=== PATIENT | female | born 1965 | race American Indian/Alaskan Native ===

== ENCOUNTER 2017-05-20 18:36 | Inpatient (IN) | payer OTHER ==
[2017-05-20] MEDS ORDERED: NITROSTAT SL ONE (20:12)
[2017-05-20] MEDS ORDERED: ASPIRIN ONE (22:18)
[2017-05-21 00:10] LABS: Basophils % (Auto) 1.6 % (0.0-1.8); Eosinophils % (Auto) 1.9 % (0.0-4.3); Hematocrit 38.3 % (30.3-42.9); Hemoglobin 12.5 gm/dl (10.1-14.3); Mean Corpuscular HGB Conc 33 % (30-34); Mean Corpuscular Hemoglobin 29 pg (28-32); Mean Corpuscular Volume 88 fl (79-97); Platelet Count 357 K/mm3 (140-440); Red Blood Count 4.36 M/mm3 (3.65-5.03); Red Cell Distribution Width 14.2 % (13.2-15.2); White Blood Count 5.9 K/mm3 (4.5-11.0)
[2017-05-21] MEDS ORDERED: SUBLIMAZE IV ONE (00:49)
[2017-05-21 00:52] LABS: Anion Gap 22 mmol/L; Blood Urea Nitrogen 11 mg/dL (7-17); Calcium 9.1 mg/dL (8.4-10.2); Carbon Dioxide 21 mmol/L (22-30); Chloride 97.9 mmol/L (98-107); Glucose 101 mg/dL (65-100); Potassium 3.6 mmol/L (3.6-5.0); Sodium 137 mmol/L (137-145)
--- NOTE | 2017-05-21 01:40 | Emergency Department Report ---
ED Chest Pain HPI - General Chief Complaint: Chest Pain Time Seen by Provider: 05/21/17 00:46 Source: patient, EMS Mode of arrival: Stretcher Limitations: No Limitations - History of Present Illness Initial Comments: Patient is a 52-year-old female who presents with chest pain. Patient states that earlier this morning she was having sharp chest pain about 10/10 nothing made it better or worse. It occurred at rest at this morning. She states that she hasn't had chest pain like this before. She denies having any nausea or vomiting. The pain does not radiate anywhere. Patient also denies having any fever as well. She states that she has some shortness of breath with this chest pain. No recent surgeries or no prolonged travel no tachpnea. Severity scale (0 -10): 5 - Related Data Home Medications Medication Instructions Recorded Confirmed Last Taken Benztropine [Cogentin] 1 mg PO BID 07/06/13 07/06/13 Unknown Lisinopril/Hydrochlorothiazide 1 tab PO QDAY 07/06/13 07/06/13 Unknown [Zestoretic 20-12.5 mg] Ziprasidone [Geodon] 0 mg PO BID 07/06/13 07/06/13 Unknown amLODIPine [Norvasc] 5 mg PO DAILY 07/06/13 07/06/13 Unknown Previous Rx's Medication Instructions Recorded Last Taken Type Ferrous Sulfate [Feosol 325 MG tab] 325 mg PO BID #30 tablet 07/06/13 Unknown Rx medroxyPROGESTERone ACETATE 10 mg PO QDAY #12 tablet 07/06/13 Unknown Rx [Provera] Azithromycin [Zithromax Z-JULES] 250 mg PO DAILY #6 tablet 12/01/13 Unknown Rx Allergies Allergy/AdvReac Type Severity Reaction Status Date / Time No Known Allergies Allergy Unverified 07/06/13 11:10 Heart Score - HEART Score History: Moderately suspicious EKG: Non-specific Age: 45-65 Risk factors: 1-2 risk factors Troponin: < normal limit HEART Score: 4 ED Review of Systems ROS: Stated complaint: Other details as noted in HPI Constitutional: denies: chills, fever Eyes: denies: eye pain, eye discharge, vision change ENT: denies: ear pain, throat pain Respiratory: shortness of breath. denies: cough, wheezing Cardiovascular: chest pain. denies: palpitations Endocrine: no symptoms reported Gastrointestinal: denies: abdominal pain, nausea, diarrhea Genitourinary: denies: urgency, dysuria, discharge Musculoskeletal: denies: back pain, joint swelling, arthralgia Skin: denies: rash, lesions Neurological: denies: headache, weakness, paresthesias Psychiatric: denies: anxiety, depression Hematological/Lymphatic: denies: easy bleeding, easy bruising ED Past Medical Hx - Past Medical History Previous Medical History?: Yes Hx Hypertension: Yes Hx Psychiatric Treatment: Yes (psychosis) - Surgical History Past Surgical History?: No - Social History Smoking Status: Unknown if ever smoked Substance Use Type: None - Medications Home Medications: Home Medications Medication Instructions Recorded Confirmed Last Taken Type Benztropine [Cogentin] 1 mg PO BID 07/06/13 07/06/13 Unknown History Ferrous Sulfate [Feosol 325 MG tab] 325 mg PO BID #30 tablet 07/06/13 Unknown Rx Lisinopril/Hydrochlorothiazide 1 tab PO QDAY 07/06/13 07/06/13 Unknown History [Zestoretic 20-12.5 mg] Ziprasidone [Geodon] 0 mg PO BID 07/06/13 07/06/13 Unknown History amLODIPine [Norvasc] 5 mg PO DAILY 07/06/13 07/06/13 Unknown History medroxyPROGESTERone ACETATE 10 mg PO QDAY #12 tablet 07/06/13 Unknown Rx [Provera] Azithromycin [Zithromax Z-JULES] 250 mg PO DAILY #6 tablet 12/01/13 Unknown Rx ED Physical Exam - General Limitations: No Limitations General appearance: alert, in no apparent distress - Head Head exam: Present: atraumatic, normocephalic - Eye Eye exam: Present: normal appearance - ENT ENT exam: Present: mucous membranes moist - Neck Neck exam: Present: normal inspection - Respiratory Respiratory exam: Present: normal lung sounds bilaterally. Absent: respiratory distress - Cardiovascular Cardiovascular Exam: Present: regular rate, normal rhythm. Absent: systolic murmur, diastolic murmur, rubs, gallop - GI/Abdominal GI/Abdominal exam: Present: soft, normal bowel sounds - Extremities Exam Extremities exam: Present: normal inspection - Back Exam Back exam: Present: normal inspection - Neurological Exam Neurological exam: Present: alert, oriented X3, CN II-XII intact - Psychiatric Psychiatric exam: Present: normal affect, normal mood - Skin Skin exam: Present: warm, dry, intact, normal color. Absent: rash ED Course Vital Signs 05/20/17 22:29 Temperature 98.7 F Pulse Rate 99 H Respiratory 20 Rate Blood Pressure 180/90 Blood Pressure 182/90 [Right] O2 Sat by Pulse 99 Oximetry - Reevaluation(s) Reevaluation #1: 05/21/17 01:40 Patient is feeling better after IV pain medication discussed with patient that she will be admitted to the hospital. CARMEL score - Carmel Score Age > 65: (0) No Aspirin use within the Past 7 Days: (1) Yes 3 or more CAD Risk Factors: (0) No 2 or more Angina events in past 24 hrs: (1) Yes Known CAD with more than 50% Stenosis: (0) No Elevated Cardiac Markers: (0) No ST Deviation Greater than 0.5mm: (0) No CARMEL Score: 2 ED Medical Decision Making - Lab Data Result diagrams: 05/20/17 23:24 05/20/17 23:24 Lab Results 05/20/17 05/20/17 Range/Units 23:24 23:24 WBC 5.9 (4.5-11.0) K/mm3 RBC 4.36 (3.65-5.03) M/mm3 Hgb 12.5 (10.1-14.3) gm/dl Hct 38.3 (30.3-42.9) % MCV 88 (79-97) fl MCH 29 (28-32) pg MCHC 33 (30-34) % RDW 14.2 (13.2-15.2) % Plt Count 357 (140-440) K/mm3 Lymph % (Auto) 42.2 H (13.4-35.0) % [place] % (Auto) 4.1 (0.0-7.3) % Eos % (Auto) 1.9 (0.0-4.3) % Baso % (Auto) 1.6 (0.0-1.8) % Lymph # 2.5 (1.2-5.4) K/mm3 [place] # 0.2 (0.0-0.8) K/mm3 Eos # 0.1 (0.0-0.4) K/mm3 Baso # 0.1 (0.0-0.1) K/mm3 Seg Neutrophils % 50.2 (40.0-70.0) % Seg Neutrophils # 3.0 (1.8-7.7) K/mm3 Sodium 137 (137-145) mmol/L Potassium 3.6 (3.6-5.0) mmol/L Chloride 97.9 L (98-107) mmol/L Carbon Dioxide 21 L (22-30) mmol/L Anion Gap 22 mmol/L BUN 11 (7-17) mg/dL Creatinine 0.5 L (0.7-1.2) mg/dL Estimated GFR > 60 ml/min BUN/Creatinine Ratio 22.00 % Glucose 101 H (65-100) mg/dL Calcium 9.1 (8.4-10.2) mg/dL Troponin T < 0.010 (0.00-0.029) ng/mL - EKG Data -: EKG Interpreted by Me - EKG Data 05/21/17 01:41 EKG shows atrial flutter with variable AV block with PVCs and left axis deviation and right bundle branch block. - Radiology Data Radiology results: image reviewed Chest x-ray: Shows no acute cardiopulmonary disease. - Medical Decision Making Chief medical diagnosis: Non-STEMI Differential medical diagnosis: Pneumonia, GERD, esophageal spasm, CHF CBC, EKG, CMP, troponin BMP chest x-ray Due to patient having risk factors for acute coronary syndrome I will admit patient for acute coronary syndrome rule out. Discussed with patient that she will be admitted to the hospital. Critical care attestation.: If time is entered above; I have spent that time in minutes in the direct care of this critically ill patient, excluding procedure time. ED Disposition Clinical Impression: Chest pain Qualifiers: Chest pain type: unspecified Qualified Code(s): R07.9 - Chest pain, unspecified Disposition: 09 OP ADMIT IP TO THIS HOSP Is pt being admited?: No Does the pt Need Aspirin: No Condition: Stable Instructions: Chest Pain (ED) Referrals: JESSICA KERR MD [Primary Care Provider] - 3-5 Days
--- NOTE | 2017-05-21 03:23 | History and Physical Report ---
CHIEF COMPLAINT: Abdominal pain and chest pain. HISTORY OF PRESENT ILLNESS: A 52-year-old woman with a history of hypertension, CHF, and atrial flutter comes to the Emergency Room with complaints of lower abdominal pain, which she states feels like fire, constant, intensity 8/10, no radiation and she cannot identify exacerbating or relieving factors. Also, complained of chest pain located in the epigastric area, which she describes as a sharp pain, constant, and intensity radiation and she cannot identify exacerbating or relieving factors. She had a stress test done in November in [place], which was negative. She admits to nausea or shortness of breath. No diaphoresis or palpitations. REVIEW OF SYSTEMS: EAR: No earache or tinnitus. CONSTITUTIONAL: No fever or chills. CARDIAC: No orthopnea. LUNGS: No cough. No wheezing. GI: No hematochezia. : No dysuria or frequency. SKIN: No rash or pruritus. NEUROLOGICAL: No focal weakness or paraesthesia. MUSCULOSKELETAL: No joint pain or myalgia. ENDOCRINE: No hot or cold intolerance, polyuria, or polydipsia. HEMATOLOGY: No petechia or ecchymosis. No easy bruising. PAST MEDICAL HISTORY: Hypertension, CHF, and atrial flutter. PAST SURGICAL HISTORY: Tubal ligation and cyst removed from the left breast. SOCIAL HISTORY: Denies alcohol, tobacco, or drugs. FAMILY HISTORY: Hypertension. MEDICATIONS: Reviewed. ALLERGIES: Medicine reviewed. PHYSICAL EXAMINATION: VITAL SIGNS: Blood pressure 138/90, pulse 92, respiration 18, temperature 98.7, and sats 98%. GENERAL APPEARANCE: The patient lying in bed, in no acute distress. HEENT: Normocephalic and atraumatic. Pupils equal, round, and react to light. Extraocular movement is intact. No scleral icterus or JVD. No thyromegaly or nodules. NECK: Supple. No carotid bruit. Mucous membranes moist. No exudate or erythema. HEART: S1 and S2 regular rate and rhythm. CHEST: Lungs clear to auscultation bilaterally, breathing comfortable. ABDOMEN: Positive bowel sounds. Tender in the lower quadrants. No rebound or guarding. EXTREMITIES: No edema, cyanosis, or clubbing. SKIN: No rash, warm, and dry. NEUROLOGIC: Oriented x3. Cranial nerves 2-12 intact. Speech is fluent. LABORATORY DATA: Reviewed. DIAGNOSTIC DATA: EKG reviewed. ASSESSMENT AND PLAN: 1. Abdominal pain. 2. Chest pain. 3. Atrial flutter. 4. Congestive heart failure, chronic, stable. 5. Hypertension. PLAN: 1. Admit to medicine. 2. Check cardiac enzymes, CT chest, abdomen, and pelvis. 3. Consult Cardiology. 4. Start ____ IV morphine, antiemetics, and DVT prophylaxis. JOB# [id number] AES/NTS
[2017-05-21 03:43] LABS: Creatine Kinase MB 12.5 ng/mL (0.0-4.0)
[2017-05-21] MEDS ORDERED: NACL ONE (04:01)
[2017-05-21] MEDS ORDERED: APRESOLINE ONE (04:24)
[2017-05-21 05:27] LABS: Anion Gap 19 mmol/L; Blood Urea Nitrogen 12 mg/dL (7-17); Calcium 9.2 mg/dL (8.4-10.2); Carbon Dioxide 24 mmol/L (22-30); Chloride 100.9 mmol/L (98-107); Glucose 88 mg/dL (65-100); Potassium 3.8 mmol/L (3.6-5.0); Sodium 140 mmol/L (137-145)
[2017-05-21 05:28] LABS: Creatine Kinase MB 12.1 ng/mL (0.0-4.0)
--- NOTE | 2017-05-21 05:54 | Cat Scan Report ---
FINAL REPORT PROCEDURE: CT ANGIO CHEST TECHNIQUE: Computerized tomographic angiography of the chest was performed after the IV injection of iodinated nonionic contrast including image processing. The image data was postprocessed using 2-dimensional multiplanar reformatted (MPR) and 3-dimensional (MIP and/or volume rendered) techniques. HISTORY: SOB chest pain COMPARISON: No prior studies are available for comparison. FINDINGS: Heart and pericardium: Normal. Thoracic aorta: Normal. Pulmonary vasculature: Normal. Lymph nodes: No enlarged thoracic lymph nodes. Lungs: The lungs are clear. No consolidation, effusion or pneumothorax. Central airway is patent.. Pleural space: No effusion, thickening, or pneumothorax. Musculoskeletal structures: No significant abnormality. Upper abdominal structures: No significant abnormality. IMPRESSION: There is no evidence of pulmonary arterial emboli. The lungs are clear without infiltrate, effusion or pneumothorax.
[2017-05-21] MEDS ORDERED: APRESOLINE IV PRN (05:58)
--- NOTE | 2017-05-21 06:08 | Cat Scan Report ---
FINAL REPORT EXAM: CT ABDOMEN PELVIS W CON HISTORY: CHEST AND ABD PAIN low pelvic pain TECHNIQUE: CT images are acquired through the Abdomen and Pelvis arterial and delayed phases following intravenous administration of contrast. Transaxial, coronal and sagittal reformations are provided. PRIORS: CT chest angiogram of the same date FINDINGS: Partially visualized intrathoracic contents are unremarkable. The liver, gallbladder, pancreas, spleen, and adrenal glands are unremarkable. Kidneys show no worrisome lesions, hydronephrosis, or calculi. Urinary bladder is unremarkable. Small and large bowel are normal in caliber. Appendix is normal. No free air, free fluid, or lymphadenopathy identified. Aorta is normal in course and caliber. Anteverted uterus. No free fluid in the pelvis. Superficial soft tissues are unremarkable. No acute or aggressive appearing skeletal findings. IMPRESSION: No acute intra-abdominal process.
[2017-05-21] MEDS ORDERED: MORPHINE IV PRN (07:20)
[2017-05-21 09:00] LABS: Basophils % (Auto) 1.7 % (0.0-1.8); Eosinophils % (Auto) 2.3 % (0.0-4.3); Hematocrit 38.6 % (30.3-42.9); Hemoglobin 12.5 gm/dl (10.1-14.3); Mean Corpuscular HGB Conc 32 % (30-34); Mean Corpuscular Hemoglobin 28 pg (28-32); Mean Corpuscular Volume 88 fl (79-97); Platelet Count 338 K/mm3 (140-440); Red Blood Count 4.41 M/mm3 (3.65-5.03); Red Cell Distribution Width 14.1 % (13.2-15.2); White Blood Count 4.4 K/mm3 (4.5-11.0)
[2017-05-21 09:22] LABS: Anion Gap 18 mmol/L; Blood Urea Nitrogen 11 mg/dL (7-17); Calcium 9.1 mg/dL (8.4-10.2); Carbon Dioxide 26 mmol/L (22-30); Chloride 100.7 mmol/L (98-107); Cholesterol 143 mg/dL (50-199); Glucose 89 mg/dL (65-100); HDL Cholesterol 85 mg/dL (40-59); LDL Cholesterol,Direct 43 mg/dL (50-130); Potassium 4.2 mmol/L (3.6-5.0); Sodium 140 mmol/L (137-145); Triglycerides 77 mg/dL (2-149)
[2017-05-21] MEDS ORDERED: NON-FORMULARY (Lisinopril/Hydrochlorothiazide [Zestoretic 20-12.5 Mg] 1 TAB) PO SCH (10:00)
[2017-05-21] MEDS ORDERED: SODIUM CHLORIDE FLUSH SYRINGE 10 ML IV PRN (10:00)
[2017-05-21] MEDS ORDERED: DILAUDID IV ONE (10:00)
[2017-05-21] MEDS: ZESTRIL PO SCH (10:32)
--- NOTE | 2017-05-21 10:46 | XRay Report ---
Chest 2 views: History: Chest pain. Findings: Normal cardiomediastinal silhouette. Trachea is midline. No consolidation, pneumothorax or pleural effusion. Impression: No acute cardiopulmonary findings.
[2017-05-21] MEDS ORDERED: LEXISCAN IV ONE ×2 (11:47→11:56)
[2017-05-21 13:54] LABS: Bilirubin,Urine Negative (Negative); Blood,Urine Negative (Negative); Ketones,Urine Negative (Negative); Leukocyte Esterase,Urine Negative (Negative); Mucus,Urine 1+ /HPF; Nitrite,Urine Negative (Negative); Protein,Urine <15 mg/dL mg/dL (Negative); Urobilinogen,Urine < 2.0 mg/dL (<2.0)
[2017-05-21 14:00] LABS: Hematocrit 38.3 % (30.3-42.9); Hemoglobin 12.4 gm/dl (10.1-14.3); Red Blood Count 4.38 M/mm3 (3.65-5.03); White Blood Count 4.3 K/mm3 (4.5-11.0)
[2017-05-21 14:01] LABS: Basophils % (Auto) 1.4 % (0.0-1.8); Eosinophils % (Auto) 2.6 % (0.0-4.3); Mean Corpuscular HGB Conc 32 % (30-34); Mean Corpuscular Hemoglobin 28 pg (28-32); Mean Corpuscular Volume 88 fl (79-97); Platelet Count 337 K/mm3 (140-440)
--- NOTE | 2017-05-21 16:26 | Event Note ---
Date: 05/21/17 Patient was seen and evaluated after she comes from stress test, patient is still complaining chest pain and abdominal pain. Patient states she has history of atrial flutter, CHF but not on medication. Patient said she has history of anxiety disorder but she is not on any medication. Patient has no swelling when the back which looks like abscess. Cardiology, mental health and surgery consulted.
[2017-05-21] MEDS ORDERED: HYOMAX-SR PO PRN (16:31)
--- NOTE | 2017-05-21 16:48 | Event Note ---
Date: 05/21/17 Pt was seen in stress lab this AM by [facility]. Cardiology consult deferred to [facility]. Ashley DELGADO NP / DR. GALLEGOS
[2017-05-21] MEDS: COGENTIN PO SCH ×2 (17:29→21:46)
[2017-05-21] MEDS: FEOSOL PO SCH ×2 (17:30→21:46)
[2017-05-21] MEDS: GEODON PO SCH ×2 (17:31→21:46)
[2017-05-21] MEDS: HCTZ PO SCH (17:35)
[2017-05-21] MEDS: HEPARIN SUB-Q SCH ×2 (17:35→21:47)
[2017-05-21] MEDS: PROTONIX PO SCH (17:50)
[2017-05-21] MEDS: NORVASC PO SCH (17:51)
[2017-05-21] MEDS: PERCOCET 5/325 PO PRN (18:34)
--- NOTE | 2017-05-22 01:29 | Treadmill Report ---
THALLIUM STRESS TEST LEFT VENTRICLE: Left ventricular chamber size is within normal spread. Perfusion study demonstrates homogeneous uptake of the tracer in all segments, no significant perfusion defects identified. Gated analysis demonstrates normal left ventricular systolic function, ejection fraction greater than 70%. CONCLUSION: Normal myocardial perfusion study. JOB# [id number] CA/NTS
[2017-05-22] MEDS: PERCOCET 5/325 PO PRN ×2 (05:32→21:52)
[2017-05-22 06:58] LABS: Basophils % (Auto) 1.3 % (0.0-1.8); Eosinophils % (Auto) 2.4 % (0.0-4.3); Hematocrit 37.2 % (30.3-42.9); Hemoglobin 12.6 gm/dl (10.1-14.3); Mean Corpuscular HGB Conc 34 % (30-34); Mean Corpuscular Hemoglobin 29 pg (28-32); Mean Corpuscular Volume 87 fl (79-97); Platelet Count 338 K/mm3 (140-440); Red Blood Count 4.29 M/mm3 (3.65-5.03); Red Cell Distribution Width 14.1 % (13.2-15.2); White Blood Count 3.8 K/mm3 (4.5-11.0)
[2017-05-22 07:10] LABS: Anion Gap 16 mmol/L; Blood Urea Nitrogen 12 mg/dL (7-17); Calcium 9.1 mg/dL (8.4-10.2); Carbon Dioxide 28 mmol/L (22-30); Chloride 98.5 mmol/L (98-107); Glucose 93 mg/dL (65-100); Potassium 3.8 mmol/L (3.6-5.0); Sodium 139 mmol/L (137-145)
[2017-05-22] MEDS: HEPARIN SUB-Q SCH (07:12)
--- NOTE | 2017-05-22 09:09 | Consultation ---
History of Present Illness Consult date: 05/22/17 Reason for consult: other (?abscess on back) Chief complaint: chest pain, pelvic pain - History of present illness History of present illness: 52 yo F presents to hospital with complaints of chest pain for several days. She currently states she has no pain in the chest but more so in the pelvic area. General surgery is consulted for a possible abscess on the patient's back. Patient states a lump has been present on her upper back for the last 2 years and sometimes gives her discomfort. It has not spontaneously drained. It is painful at times when touched. Subjectively, she feels it has increased in size over the last 2 years. She denies f/c, CP, SOB, n/v. She is tolerating a regular diet. Past History Past Medical History: anemia, hypertension, other (anxiety) Social history: no significant social history Family history: no significant family history Medications and Allergies Allergies Allergy/AdvReac Type Severity Reaction Status Date / Time isotretinoin [From Accutane] Allergy Anaphylaxis Verified 05/21/17 05:04 morphine Allergy Anaphylaxis Verified 05/21/17 05:03 Home Medications Medication Instructions Recorded Confirmed Last Taken Type Benztropine [Cogentin] 1 mg PO BID 07/06/13 07/06/13 Unknown History Ferrous Sulfate [Feosol 325 MG tab] 325 mg PO BID #30 tablet 07/06/13 Unknown Rx Lisinopril/Hydrochlorothiazide 1 tab PO QDAY 07/06/13 07/06/13 Unknown History [Zestoretic 20-12.5 mg] Ziprasidone [Geodon] 0 mg PO BID 07/06/13 07/06/13 Unknown History amLODIPine [Norvasc] 5 mg PO DAILY 07/06/13 07/06/13 Unknown History medroxyPROGESTERone ACETATE 10 mg PO QDAY #12 tablet 07/06/13 Unknown Rx [Provera] Azithromycin [Zithromax Z-JULES] 250 mg PO DAILY #6 tablet 12/01/13 Unknown Rx Active Meds: Active Medications Amlodipine Besylate (Norvasc) 5 mg PO DAILY [facility] Last Admin: 05/21/17 17:51 Dose: 5 mg Aspirin (Baby Aspirin) 81 mg PO QDAY [facility] Atorvastatin Calcium (Lipitor) 40 mg PO QHS [facility] Last Admin: 05/21/17 21:46 Dose: 40 mg Benztropine Mesylate (Cogentin) 1 mg PO BID [facility] Last Admin: 05/21/17 21:46 Dose: Not Given Ferrous Sulfate (Feosol) 325 mg PO BID [facility] Last Admin: 05/21/17 21:46 Dose: 325 mg Heparin Sodium (Porcine) (Heparin) 5,000 unit SUB-Q Q8HR [facility] Last Admin: 05/22/17 07:12 Dose: Not Given Hydralazine HCl (Apresoline) 5 mg IV Q4HR PRN PRN Reason: Blood Pressure Hydrochlorothiazide (Hctz) 12.5 mg PO QDAY [facility] Last Admin: 05/21/17 17:35 Dose: 12.5 mg Hyoscyamine (Hyomax-Sr) 0.375 mg PO Q12H PRN PRN Reason: Spasms Influenza Virus Vaccine Quadrival (Fluarix Quad [id number](36 Mos+)) 0.5 ml IM .ONCE ONE Stop: 05/22/17 12:01 Lisinopril (Zestril) 20 mg PO QDAY [facility] Last Admin: 05/21/17 10:32 Dose: Not Given Oxycodone/Acetaminophen (Percocet 5/325) 2 tab PO Q6H PRN PRN Reason: Pain, Moderate (4-6) Last Admin: 05/22/17 05:32 Dose: 2 tab Pantoprazole Sodium (Protonix) 40 mg PO QDAY [facility] Last Admin: 05/21/17 17:50 Dose: 40 mg Sodium Chloride (Sodium Chloride Flush Syringe 10 Ml) 10 ml IV PRN PRN PRN Reason: LINE FLUSH Ziprasidone (Geodon) 20 mg PO BID [facility] Last Admin: 05/21/17 21:46 Dose: Not Given Review of Systems All systems: negative (see H&P) Exam Vital Signs Temp Pulse Resp BP Pulse Ox 98.7 F 90 20 182/90 99 05/20/17 22:29 05/20/17 22:29 05/20/17 22:29 05/20/17 22:29 05/20/17 22:29 Narrative exam: Gen: AAOx3. NAD. eating breakfast CV: S1, S2+ Resp: No audible wheezes Skin: approximately 1cm superficial soft tissue mass on patient's left mid back. No drainage, no erythema or cellulitis. Mildly TTP. Results - Labs 05/22/17 06:04 05/22/17 06:04 Abnormal lab results 05/21/17 05/21/17 05/22/17 Range/Units 03:00 07:36 06:04 WBC 4.3 L 3.8 L (4.5-11.0) K/mm3 Lymph % (Auto) 41.8 H 45.5 H (13.4-35.0) % [place] % (Auto) 7.7 H (0.0-7.3) % Seg Neutrophils # 1.6 L (1.8-7.7) K/mm3 Creatinine 0.5 L (0.7-1.2) mg/dL LDL Cholesterol Direct 43 L (50-130) mg/dL HDL Cholesterol 85 H (40-59) mg/dL 05/22/17 Range/Units 06:04 WBC (4.5-11.0) K/mm3 Lymph % (Auto) (13.4-35.0) % [place] % (Auto) (0.0-7.3) % Seg Neutrophils # (1.8-7.7) K/mm3 Creatinine 0.6 L (0.7-1.2) mg/dL LDL Cholesterol Direct (50-130) mg/dL HDL Cholesterol (40-59) mg/dL Diabetes panel 05/21/17 05/22/17 Range/Units 07:36 06:04 Sodium 140 139 (137-145) mmol/L Potassium 4.2 3.8 (3.6-5.0) mmol/L Chloride 100.7 98.5 (98-107) mmol/L Carbon Dioxide 26 28 (22-30) mmol/L BUN 11 12 (7-17) mg/dL Creatinine 0.5 L 0.6 L (0.7-1.2) mg/dL Glucose 89 93 (65-100) mg/dL Calcium 9.1 9.1 (8.4-10.2) mg/dL Triglycerides 77 (2-149) mg/dL HDL Cholesterol 85 H (40-59) mg/dL Thyroid panel 05/22/17 Range/Units 06:04 TSH 2.470 (0.270-4.200) mlU/mL Calcium panel 05/21/17 05/22/17 Range/Units 07:36 06:04 Calcium 9.1 9.1 (8.4-10.2) mg/dL Pituitary panel 05/21/17 05/22/17 05/22/17 Range/Units 07:36 06:04 06:04 Sodium 140 139 (137-145) mmol/L Potassium 4.2 3.8 (3.6-5.0) mmol/L Chloride 100.7 98.5 (98-107) mmol/L Carbon Dioxide 26 28 (22-30) mmol/L BUN 11 12 (7-17) mg/dL Creatinine 0.5 L 0.6 L (0.7-1.2) mg/dL Glucose 89 93 (65-100) mg/dL Calcium 9.1 9.1 (8.4-10.2) mg/dL TSH 2.470 (0.270-4.200) mlU/mL Adrenal panel 05/21/17 05/22/17 Range/Units 07:36 06:04 Sodium 140 139 (137-145) mmol/L Potassium 4.2 3.8 (3.6-5.0) mmol/L Chloride 100.7 98.5 (98-107) mmol/L Carbon Dioxide 26 28 (22-30) mmol/L BUN 11 12 (7-17) mg/dL Creatinine 0.5 L 0.6 L (0.7-1.2) mg/dL Glucose 89 93 (65-100) mg/dL Calcium 9.1 9.1 (8.4-10.2) mg/dL - Imaging CT scan - abdomen: report reviewed, image reviewed CT scan - chest: report reviewed, image reviewed CT scan - pelvis: report reviewed, image reviewed (1 cm cyst noted on left mid thoracic area) Assessment and Plan 52 yo F with 1. cyst of back 2. chest pain 3. pelvic pain PLan: 1. medical workup for chest pain 2. continue regular diet 3. cyst on back is not infected and therefore does not require surgical intervention at this time. Patient does have a desire to remove the cyst because it has been symptomatic with pain for the last 2 years, she was advised to follow up in the office after discharge to set up elective excision of cyst [address] [facility] [address] [place] [id number] 4. Plan d/w Dr. Alvarez
[2017-05-22] MEDS: COGENTIN PO SCH ×2 (11:29→21:54)
[2017-05-22] MEDS: FEOSOL PO SCH ×2 (11:29→21:53)
[2017-05-22] MEDS: BABY ASPIRIN PO SCH (11:29)
[2017-05-22] MEDS: NORVASC PO SCH (11:30)
[2017-05-22] MEDS: HCTZ PO SCH (11:30)
[2017-05-22] MEDS: ZESTRIL PO SCH (11:30)
[2017-05-22] MEDS: GEODON PO SCH ×2 (11:30→21:53)
[2017-05-22] MEDS: PROTONIX PO SCH (11:34)
[2017-05-22] MEDS ORDERED: Fluarix Quad 2017-2018(36 MOS+) IM ONE (12:00)
--- NOTE | 2017-05-22 12:23 | Consultation ---
History of Present Illness Consult date: 05/22/17 Consult reason: chest pain History of present illness: This is a 52yr old woman who presented with chest pain. She describes chest pain during rest associated with shortness of breath. She denies chest pain on exertion. Patient was admitted for rule out ACS with a thallium stress test which was normal. Her EKG on presentation was atrial flutter with rapid ventricular response. Patient denies palpitations. Patient denies prior history of arrhythmias. TSH is normal. She has since reverted to a normal sinus rhythm. Cardiac consultation was requested. Past History Social history: no significant social history Family history: no significant family history Medications and Allergies Allergies Allergy/AdvReac Type Severity Reaction Status Date / Time isotretinoin [From Accutane] Allergy Anaphylaxis Verified 05/21/17 05:04 morphine Allergy Anaphylaxis Verified 05/21/17 05:03 Home Medications Medication Instructions Recorded Confirmed Last Taken Type Benztropine [Cogentin] 1 mg PO BID 07/06/13 07/06/13 Unknown History Ferrous Sulfate [Feosol 325 MG tab] 325 mg PO BID #30 tablet 07/06/13 Unknown Rx Lisinopril/Hydrochlorothiazide 1 tab PO QDAY 07/06/13 07/06/13 Unknown History [Zestoretic 20-12.5 mg] Ziprasidone [Geodon] 0 mg PO BID 07/06/13 07/06/13 Unknown History amLODIPine [Norvasc] 5 mg PO DAILY 07/06/13 07/06/13 Unknown History medroxyPROGESTERone ACETATE 10 mg PO QDAY #12 tablet 07/06/13 Unknown Rx [Provera] Azithromycin [Zithromax Z-JULES] 250 mg PO DAILY #6 tablet 12/01/13 Unknown Rx Active Meds: Active Medications Amlodipine Besylate (Norvasc) 5 mg PO DAILY [facility] Last Admin: 05/22/17 11:30 Dose: 5 mg Aspirin (Baby Aspirin) 81 mg PO QDAY [facility] Last Admin: 05/22/17 11:29 Dose: 81 mg Atorvastatin Calcium (Lipitor) 40 mg PO QHS [facility] Last Admin: 05/21/17 21:46 Dose: 40 mg Benztropine Mesylate (Cogentin) 1 mg PO BID [facility] Last Admin: 05/22/17 11:29 Dose: Not Given Ferrous Sulfate (Feosol) 325 mg PO BID [facility] Last Admin: 05/22/17 11:29 Dose: 325 mg Heparin Sodium (Porcine) (Heparin) 5,000 unit SUB-Q Q8HR [facility] Last Admin: 05/22/17 07:12 Dose: Not Given Hydralazine HCl (Apresoline) 5 mg IV Q4HR PRN PRN Reason: Blood Pressure Hydrochlorothiazide (Hctz) 12.5 mg PO QDAY [facility] Last Admin: 05/22/17 11:30 Dose: 12.5 mg Hyoscyamine (Hyomax-Sr) 0.375 mg PO Q12H PRN PRN Reason: Spasms Lisinopril (Zestril) 20 mg PO QDAY [facility] Last Admin: 05/22/17 11:30 Dose: 20 mg Oxycodone/Acetaminophen (Percocet 5/325) 2 tab PO Q6H PRN PRN Reason: Pain, Moderate (4-6) Last Admin: 05/22/17 05:32 Dose: 2 tab Pantoprazole Sodium (Protonix) 40 mg PO QDAY [facility] Last Admin: 05/22/17 11:34 Dose: 40 mg Sodium Chloride (Sodium Chloride Flush Syringe 10 Ml) 10 ml IV PRN PRN PRN Reason: LINE FLUSH Ziprasidone (Geodon) 20 mg PO BID [facility] Last Admin: 05/22/17 11:30 Dose: Not Given Physical Examination Vital Signs Temp Pulse Resp BP Pulse Ox 98.7 F 90 20 182/90 99 05/20/17 22:29 05/20/17 22:29 05/20/17 22:29 05/20/17 22:29 05/20/17 22:29 General appearance: no acute distress HEENT: Positive: PERRL Neck: Positive: trachea midline Cardiac: Positive: Reg Rate and Rhythm Results 05/22/17 06:04 05/22/17 06:04 CBC 05/21/17 05/22/17 Range/Units 03:00 06:04 WBC 4.3 L 3.8 L (4.5-11.0) K/mm3 RBC 4.38 4.29 (3.65-5.03) M/mm3 Hgb 12.4 12.6 (10.1-14.3) gm/dl Hct 38.3 37.2 (30.3-42.9) % Plt Count 337 338 (140-440) K/mm3 Lymph # 1.8 1.7 (1.2-5.4) K/mm3 [place] # 0.3 0.3 (0.0-0.8) K/mm3 Eos # 0.1 0.1 (0.0-0.4) K/mm3 Baso # 0.1 0.0 (0.0-0.1) K/mm3 Comprehensive Metabolic Panel 05/22/17 Range/Units 06:04 Sodium 139 (137-145) mmol/L Potassium 3.8 (3.6-5.0) mmol/L Chloride 98.5 (98-107) mmol/L Carbon Dioxide 28 (22-30) mmol/L BUN 12 (7-17) mg/dL Creatinine 0.6 L (0.7-1.2) mg/dL Glucose 93 (65-100) mg/dL Calcium 9.1 (8.4-10.2) mg/dL Assessment and Plan Chest pain, atypical normal MPI this admission no evidence of pulmonary embolism Atrial flutter, paroxysmal currently in sinus rhythm normal TSH
[2017-05-22 14:56] LABS: INR 0.97 (0.87-1.13)
--- NOTE | 2017-05-22 16:36 | Progress Note ---
Assessment and Plan Assessment and plan: Chest pain A fib Abdominal pain Anxiety disorder Cyst on the back: surgery consulted and will follow as an o/P - Stress test was done and was negative - Cardiology consulted and put her on warfarin - GI consulted for abdominal pain - Mental health was consulted and she is on geodon DVT prophylaxis - on heparin Disposition - will be discharged after GI evaluation. History Interval history: Patient is still complaining of abdominal pain, chest pain subsided. Hospitalist Physical - Physical exam Narrative exam: Not in cardiopulmonary distress. The patient appeared well nourished and normally developed. Vital signs as documented. Head exam is unremarkable. No scleral icterus . Neck is without jugular venous distension, thyromegaly, or carotid bruits. Lungs are clear to auscultation. Cardiac exam reveals regular rate and Rhythm. First and second heart sounds normal. No murmurs, rubs or gallops. Abdominal exam reveals normal bowel sounds, no masses, no organomegaly and no aortic enlargement. Extremities are nonedematous and both femoral and pedal pulses are normal. JINGLE WRITER: Alert and oriented 3. No focal weakness. - Constitutional Vitals: Temp Pulse Resp BP Pulse Ox 98.7 F 80 18 142/91 99 05/22/17 13:26 05/22/17 15:00 05/22/17 13:26 05/22/17 13:26 05/22/17 13:26 General appearance: Present: no acute distress Results - Labs CBC & Chem 7: 05/22/17 06:04 05/22/17 06:04 Labs: Laboratory Last Values WBC 3.8 K/mm3 (4.5-11.0) L 05/22/17 06:04 RBC 4.29 M/mm3 (3.65-5.03) 05/22/17 06:04 Hgb 12.6 gm/dl (10.1-14.3) 05/22/17 06:04 Hct 37.2 % (30.3-42.9) 05/22/17 06:04 MCV 87 fl (79-97) 05/22/17 06:04 MCH 29 pg (28-32) 05/22/17 06:04 MCHC 34 % (30-34) 05/22/17 06:04 RDW 14.1 % (13.2-15.2) 05/22/17 06:04 Plt Count 338 K/mm3 (140-440) 05/22/17 06:04 Lymph % (Auto) 45.5 % (13.4-35.0) H 05/22/17 06:04 [place] % (Auto) 7.7 % (0.0-7.3) H 05/22/17 06:04 Eos % (Auto) 2.4 % (0.0-4.3) 05/22/17 06:04 Baso % (Auto) 1.3 % (0.0-1.8) 05/22/17 06:04 Lymph # 1.7 K/mm3 (1.2-5.4) 05/22/17 06:04 [place] # 0.3 K/mm3 (0.0-0.8) 05/22/17 06:04 Eos # 0.1 K/mm3 (0.0-0.4) 05/22/17 06:04 Baso # 0.0 K/mm3 (0.0-0.1) 05/22/17 06:04 Seg Neutrophils % 43.1 % (40.0-70.0) 05/22/17 06:04 Seg Neutrophils # 1.6 K/mm3 (1.8-7.7) L 05/22/17 06:04 PT 12.8 Sec. (12.2-14.9) 05/22/17 14:16 INR 0.97 (0.87-1.13) 05/22/17 14:16 Sodium 139 mmol/L (137-145) 05/22/17 06:04 Potassium 3.8 mmol/L (3.6-5.0) 05/22/17 06:04 Chloride 98.5 mmol/L (98-107) 05/22/17 06:04 Carbon Dioxide 28 mmol/L (22-30) 05/22/17 06:04 Anion Gap 16 mmol/L 05/22/17 06:04 BUN 12 mg/dL (7-17) 05/22/17 06:04 Creatinine 0.6 mg/dL (0.7-1.2) L 05/22/17 06:04 Estimated GFR > 60 ml/min 05/22/17 06:04 BUN/Creatinine Ratio 20.00 % 05/22/17 06:04 Glucose 93 mg/dL (65-100) 05/22/17 06:04 Calcium 9.1 mg/dL (8.4-10.2) 05/22/17 06:04 Phosphorus 3.50 mg/dL (2.5-4.5) 05/21/17 02:42 Magnesium 2.10 mg/dL (1.7-2.3) 05/21/17 02:42 CK-MB (CK-2) 12.1 ng/mL (0.0-4.0) H 05/21/17 02:42 Troponin T < 0.010 ng/mL (0.00-0.029) 05/21/17 15:55 Triglycerides 77 mg/dL (2-149) 05/21/17 07:36 Cholesterol 143 mg/dL (50-199) 05/21/17 07:36 LDL Cholesterol Direct 43 mg/dL (50-130) L 05/21/17 07:36 HDL Cholesterol 85 mg/dL (40-59) H 05/21/17 07:36 Cholesterol/HDL Ratio 1.68 % 05/21/17 07:36 TSH 2.470 mlU/mL (0.270-4.200) 05/22/17 06:04 Free T4 1.02 ng/dL (0.76-1.46) 05/22/17 06:04 Urine Color Yellow (Yellow) 05/20/17 19:05 Urine Turbidity Clear (Clear) 05/20/17 19:05 Urine pH 6.0 (5.0-7.0) 05/20/17 19:05 Ur Specific [place] 1.017 (1.003-1.030) 05/20/17 19:05 Urine Protein <15 mg/dl mg/dL (Negative) 05/20/17 19:05 Urine Glucose (UA) Negative mg/dL (Negative) 05/20/17 19:05 Urine Ketones Negative mg/dL (Negative) 05/20/17 19:05 Urine Blood Negative (Negative) 05/20/17 19:05 Urine Nitrite Negative (Negative) 05/20/17 19:05 Urine Bilirubin Negative (Negative) 05/20/17 19:05 Urine Urobilinogen < 2.0 mg/dL (<2.0) 05/20/17 19:05 Ur Leukocyte Esterase Negative (Negative) 05/20/17 19:05 Urine WBC (Auto) 1.0 /HPF (0.0-6.0) 05/20/17 19:05 Urine RBC (Auto) 2.0 /HPF (0.0-6.0) 05/20/17 19:05 U Epithel Cells (Auto) 1.0 /HPF (0-13.0) 05/20/17 19:05 Urine Mucus 1+ /HPF 05/20/17 19:05
[2017-05-22] MEDS: TOPROL XL PO SCH (16:47)
[2017-05-22] MEDS ORDERED: COUMADIN PO SCH (17:00)
[2017-05-23 05:24] VITALS: BP 97/61
[2017-05-23 06:07] LABS: Basophils % (Auto) 1.4 % (0.0-1.8); Eosinophils % (Auto) 3.4 % (0.0-4.3); Hematocrit 36.8 % (30.3-42.9); Hemoglobin 12.5 gm/dl (10.1-14.3); Mean Corpuscular HGB Conc 34 % (30-34); Mean Corpuscular Hemoglobin 29 pg (28-32); Mean Corpuscular Volume 87 fl (79-97); Platelet Count 323 K/mm3 (140-440); Red Blood Count 4.24 M/mm3 (3.65-5.03); Red Cell Distribution Width 13.7 % (13.2-15.2); White Blood Count 3.6 K/mm3 (4.5-11.0)
[2017-05-23 06:29] LABS: Anion Gap 18 mmol/L; BUN/Creatinine Ratio 24.28; Blood Urea Nitrogen 17 mg/dL (7-17); Calcium 8.9 mg/dL (8.4-10.2); Carbon Dioxide 28 mmol/L (22-30); Chloride 99.2 mmol/L (98-107); Glucose 94 mg/dL (65-100); Potassium 3.9 mmol/L (3.6-5.0); Sodium 141 mmol/L (137-145)
--- NOTE | 2017-05-23 09:34 | Gastroenterology Consultation ---
History of Present Illness - Reason for Consult Consult date: 05/23/17 abd pain Requesting physician: LUCINDA DAVISON - History of Present Illness Patient is a 52 y/o female who was admitted for CP. EKG showed A-flutter with RVR. Cardiology was consulted. Stress test was negative. She is on Coumadin and Toprol and is now in SR. GI has been consulted for abd pain. Abd CT was negative for any acute process. This morning pt was sitting on the side of the bed eating breakfast. No acute distress noted. She reports her abd pain is pelvic pain. She states the pain has been intermittent for years due to a hx of endometriosis. Pain is described as a pulling sensation that can be dull or sharp. There are no aggravating factors. A hot shower or laying on her side seems to improve pain when it is present. Abd is soft, non-distended. TTP in suprapubic area. No vaginal bleeding. Denies fever, wt loss, N/V, dysphagia, heartburn, hematemesis, melena, diarrhea, constipation, or hematochezia. No previous colonoscopy. No Fhx of colon CA. Past History Past Medical History: anemia, hypertension, other (anxiety, A-flutter) Past Surgical History: No surgical history Social history: no significant social history Family history: no significant family history Medications and Allergies Allergies Allergy/AdvReac Type Severity Reaction Status Date / Time isotretinoin [From Accutane] Allergy Anaphylaxis Verified 05/21/17 05:04 morphine Allergy Anaphylaxis Verified 05/21/17 05:03 Home Medications Medication Instructions Recorded Confirmed Last Taken Type Benztropine [Cogentin] 1 mg PO BID 07/06/13 07/06/13 Unknown History Ferrous Sulfate [Feosol 325 MG tab] 325 mg PO BID #30 tablet 07/06/13 Unknown Rx Lisinopril/Hydrochlorothiazide 1 tab PO QDAY 07/06/13 07/06/13 Unknown History [Zestoretic 20-12.5 mg] Ziprasidone [Geodon] 0 mg PO BID 07/06/13 07/06/13 Unknown History amLODIPine [Norvasc] 5 mg PO DAILY 07/06/13 07/06/13 Unknown History medroxyPROGESTERone ACETATE 10 mg PO QDAY #12 tablet 07/06/13 Unknown Rx [Provera] Azithromycin [Zithromax Z-JULES] 250 mg PO DAILY #6 tablet 12/01/13 Unknown Rx Active Meds: Active Medications Amlodipine Besylate (Norvasc) 5 mg PO DAILY [facility] Last Admin: 05/22/17 11:30 Dose: 5 mg Aspirin (Baby Aspirin) 81 mg PO QDAY [facility] Last Admin: 05/22/17 11:29 Dose: 81 mg Atorvastatin Calcium (Lipitor) 40 mg PO QHS [facility] Last Admin: 05/22/17 21:53 Dose: 40 mg Benztropine Mesylate (Cogentin) 1 mg PO BID [facility] Last Admin: 05/22/17 21:54 Dose: Not Given Ferrous Sulfate (Feosol) 325 mg PO BID [facility] Last Admin: 05/22/17 21:53 Dose: 325 mg Hydralazine HCl (Apresoline) 5 mg IV Q4HR PRN PRN Reason: Blood Pressure Hydrochlorothiazide (Hctz) 12.5 mg PO QDAY [facility] Last Admin: 05/22/17 11:30 Dose: 12.5 mg Hyoscyamine (Hyomax-Sr) 0.375 mg PO Q12H PRN PRN Reason: Spasms Lisinopril (Zestril) 20 mg PO QDAY [facility] Last Admin: 05/22/17 11:30 Dose: 20 mg Metoprolol Succinate (Toprol Xl) 50 mg PO QDAY [facility] Last Admin: 05/22/17 16:47 Dose: 50 mg Oxycodone/Acetaminophen (Percocet 5/325) 2 tab PO Q6H PRN PRN Reason: Pain, Moderate (4-6) Last Admin: 05/22/17 21:52 Dose: 2 tab Pantoprazole Sodium (Protonix) 40 mg PO QDAY [facility] Last Admin: 05/22/17 11:34 Dose: 40 mg Sodium Chloride (Sodium Chloride Flush Syringe 10 Ml) 10 ml IV PRN PRN PRN Reason: LINE FLUSH Warfarin Sodium (Coumadin Pharmacy To Dose) 1 each PO [facility]CON[facility]FORMERLY [facility] PRN Reason: Protocol Warfarin Sodium (Coumadin) 10 mg PO DAILY@1700 [facility] Last Admin: 05/22/17 16:47 Dose: 10 mg Ziprasidone (Geodon) 20 mg PO BID [facility] Last Admin: 05/22/17 21:53 Dose: 20 mg Review of Systems - Review of Systems All systems: negative Gastrointestinal: abdominal pain (pelvic pain) Exam - Constitutional Vital Signs: Temp Pulse Resp BP Pulse Ox 97.5 F L 60 20 97/61 99 05/23/17 05:18 05/23/17 05:18 05/23/17 05:18 05/23/17 05:18 05/23/17 05:18 General appearance: no acute distress, well-nourished - EENT Eyes: PERRL, EOM intact ENT: hearing intact - Respiratory Respiratory: bilateral: CTA - Cardiovascular Rhythm: regular Heart Sounds: Present: S1 & S2 Extremities: No edema - Gastrointestinal General gastrointestinal: Present: soft, tender (suprapubic area), non-distended , normal bowel sounds - Integumentary Integumentary: Present: warm, dry - Neurologic Neurological: alert and oriented x3 - Psychiatric Psychiatric: appropriate mood/affect - Labs CBC & Chem 7: 05/23/17 05:37 05/23/17 05:37 Lab Results: Laboratory Results - last 24 hr 05/22/17 05/23/17 05/23/17 14:16 05:37 05:37 WBC 3.6 L RBC 4.24 Hgb 12.5 Hct 36.8 MCV 87 MCH 29 MCHC 34 RDW 13.7 Plt Count 323 Lymph % (Auto) 41.4 H [place] % (Auto) 9.3 H Eos % (Auto) 3.4 Baso % (Auto) 1.4 Lymph # 1.5 [place] # 0.3 Eos # 0.1 Baso # 0.0 Seg Neutrophils % 44.5 Seg Neutrophils # 1.6 L PT 12.8 13.1 INR 0.97 1.00 Sodium Potassium Chloride Carbon Dioxide Anion Gap BUN Creatinine Estimated GFR BUN/Creatinine Ratio Glucose Calcium 05/23/17 05:37 WBC RBC Hgb Hct MCV MCH MCHC RDW Plt Count Lymph % (Auto) [place] % (Auto) Eos % (Auto) Baso % (Auto) Lymph # [place] # Eos # Baso # Seg Neutrophils % Seg Neutrophils # PT INR Sodium 141 Potassium 3.9 Chloride 99.2 Carbon Dioxide 28 Anion Gap 18 BUN 17 Creatinine 0.7 Estimated GFR > 60 BUN/Creatinine Ratio 24.28 Glucose 94 Calcium 8.9 Assessment and Plan 1.abd pain/pelvic pain 2.CP 3.cyst on back -WBC-WNL -afebrile -H/H-WNL with no signs of active bleeding -abd CT-negative for any acute process -etiology of pelvic pain most likely due to h/o endometriosis -recommend a WASHCLOTH FOLDER consult -pt okay to d/c per GI standpoint with a f/u appt to schedule outpatient screening colonoscopy -will signs off, please re-consult if pt's condition changes
--- NOTE | 2017-05-23 10:37 | Discharge Summary ---
Providers - Providers Date of Admission: 05/20/17 19:00 Date of discharge: 05/23/17 Attending physician: LUCINDA DAVISON MD 05/21/17 Consult to Cardiac Rehabilitation [CONS] Routine Reason For Exam: Phase I 05/21/17 16:29 Consult to Physician [CONS] Routine Consulting Provider: ILIANA BELL Reason For Exam: abscess on the back Place consult to:: General surgery Notified:: Josephine RN Phone number called:: Was contact made?: Yes If yes, spoke with:: Kaylin-Office Time called:: 16:58 05/21/17 16:30 Consult to Mental Health [CONS] Routine Reason For Exam: Anxiety disorder Place consult to:: mental health Notified:: Josephine RN Phone number called:: [phone] Was contact made?: Yes If yes, spoke with:: Janell-mental health Time called:: 16:39 05/21/17 16:48 Consult to Physician [CONS] Routine Consulting Provider: [facility] Reason For Exam: chest pain, hx of CHF, atrial flutter Place consult to:: [place] [facility] Notified:: Josephine RN Phone number called:: Was contact made?: Yes If yes, spoke with:: [employer] service Time called:: 18:15 05/22/17 16:31 Consult to Physician [CONS] Routine Consulting Provider: [facility] Reason For Exam: abdominal pain Place consult to:: GI Notified:: office Phone number called:: [phone] Was contact made?: Yes If yes, spoke with:: ish Time called:: 16:45 Primary care physician: JESSICA KERR Hospitalization Reason for admission: Chest pain, lower abdominal pain Condition: Stable Disposition: - TO HOME OR SELFCARE Time spent for discharge: 31 minutes - Discharge Diagnoses (1) Endometriosis Status: Acute (2) Chest pain Status: Acute Qualifiers: Chest pain type: unspecified Ischemic chest pain type: I Qualified Code(s ): R07.9 - Chest pain, unspecified (3) Anemia Status: Acute Qualifiers: Anemia type: A Iron deficiency anemia type: I Vitamin B12 deficiency anemia type: V Folate deficiency anemia type: F Bone marrow failure anemia type: B Hemolytic anemia type: H Other causes of anemia: O Chronic kidney disease stage: C (4) Menorrhagia Status: Acute Qualifiers: Menorrahagia type: M Core Measure Documentation - Palliative Care Palliative Care/ Comfort Measures: Not Applicable - Core Measures Any of the following diagnoses?: none Exam - Physical Exam Narrative exam: Not in cardiopulmonary distress. The patient appeared well nourished and normally developed. Vital signs as documented. Head exam is unremarkable. No scleral icterus . Neck is without jugular venous distension, thyromegaly, or carotid bruits. Lungs are clear to auscultation. Cardiac exam reveals regular rate and Rhythm. First and second heart sounds normal. No murmurs, rubs or gallops. Abdominal exam reveals normal bowel sounds, no masses, no organomegaly and no aortic enlargement. Extremities are nonedematous and both femoral and pedal pulses are normal. 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 No focal weakness. - Constitutional Vitals: Temp Pulse Resp BP Pulse Ox 97.5 F L 60 20 97/61 99 05/23/17 05:18 05/23/17 05:18 05/23/17 05:18 05/23/17 05:18 05/23/17 05:18 Plan Activity: no restrictions Weight Bearing Status: Full Weight Bearing Diet: low cholesterol, low salt Follow up with: JESSICA KERR MD [Primary Care Provider] - 3-5 Days [facility] [Provider Group] - 6 Weeks [facility] [Provider Group] - 3 Days Forms: Warfarin Discharge Instruction Prescriptions: AtorvaSTATin [Lipitor] 40 mg PO QHS #30 tablet amLODIPine [Norvasc] 5 mg PO DAILY #30 tablet Aspirin [Aspirin BABY CHEW TAB] 81 mg PO QDAY #30 tab.chew Benztropine [Cogentin] 1 mg PO BID #60 tablet Ferrous Sulfate [Feosol 325 MG tab] 325 mg PO BID #30 tablet Indomethacin 50 mg PO Q8H #30 capsule Metoprolol Xl [Metoprolol SUCCINATE ER TAB] 50 mg PO QDAY #30 tablet oxyCODONE /ACETAMINOPHEN [Percocet 5/325 mg] 2 tab PO Q6H PRN #12 tablet PRN Reason: Pain, Moderate (4-6) Pantoprazole [Protonix TAB] 40 mg PO QDAY #30 tablet Warfarin [Coumadin] 10 mg PO DAILY@1700 #30 tablet
[2017-05-23] MEDS: GEODON PO SCH (11:14)
[2017-05-23] MEDS: NORVASC PO SCH (11:14)
[2017-05-23] MEDS: FEOSOL PO SCH (11:14)
[2017-05-23] MEDS: COGENTIN PO SCH (11:14)
[2017-05-23] MEDS: PROTONIX PO SCH (11:14)
[2017-05-23] MEDS: BABY ASPIRIN PO SCH (11:14)
[2017-05-23] MEDS: TOPROL XL PO SCH (11:14)
[2017-05-23] MEDS: HCTZ PO SCH (11:14)
[2017-05-23] MEDS: ZESTRIL PO SCH (11:15)
--- NOTE | 2017-05-23 13:08 | Progress Note ---
Assessment and Plan Chest pain, atypical normal MPI this admission no evidence of pulmonary embolism on CTA Initial ECGs reviewed and there is no evidence of atrial flutter. We will therefore, recommended stoppage of warfarin therapy. Otherwise, conservative cardiac management. Subjective Date of service: 05/23/17 Interval history: Patient has no complaints. Sinus rhythm on telemetry. Objective Vital Signs Temp Pulse Resp Resp BP BP Pulse Ox 05/23/17 09:00 64 05/23/17 05:18 97.5 F L 60 20 97/61 99 05/23/17 01:10 97.5 F L 19 103/58 05/22/17 23:00 86 05/22/17 22:00 20 97 05/22/17 21:52 20 05/22/17 20:39 97.9 F 18 148/95 05/22/17 17:10 98.3 F 20 188/94 05/22/17 16:35 98.5 F 80 18 157/67 97 05/22/17 15:00 80 05/22/17 13:26 98.7 F 86 18 142/91 99 - Physical Examination General: No Apparent Distress HEENT: Positive: PERRL Neck: Positive: trachea midline Cardiac: Positive: Reg Rate and Rhythm Lungs: Positive: Decreased Breath Sounds Neuro: Positive: Grossly Intact - Labs and Meds Coagulation 05/22/17 05/23/17 Range/Units 14:16 05:37 PT 12.8 13.1 (12.2-14.9) Sec. INR 0.97 1.00 (0.87-1.13) CBC 05/23/17 Range/Units 05:37 WBC 3.6 L (4.5-11.0) K/mm3 RBC 4.24 (3.65-5.03) M/mm3 Hgb 12.5 (10.1-14.3) gm/dl Hct 36.8 (30.3-42.9) % Plt Count 323 (140-440) K/mm3 Lymph # 1.5 (1.2-5.4) K/mm3 [place] # 0.3 (0.0-0.8) K/mm3 Eos # 0.1 (0.0-0.4) K/mm3 Baso # 0.0 (0.0-0.1) K/mm3 Comprehensive Metabolic Panel 05/23/17 Range/Units 05:37 Sodium 141 (137-145) mmol/L Potassium 3.9 (3.6-5.0) mmol/L Chloride 99.2 (98-107) mmol/L Carbon Dioxide 28 (22-30) mmol/L BUN 17 (7-17) mg/dL Creatinine 0.7 (0.7-1.2) mg/dL Glucose 94 (65-100) mg/dL Calcium 8.9 (8.4-10.2) mg/dL
--- NOTE | 2017-05-23 13:36 | Consultation ---
History of Present Illness - Reason for Consult Consult date: 05/23/17 Reason for consult: Mental Health Evaluation Requesting physician: LUCINDA DAVISON - Chief Complaint Chief complaint: "How are you" - History of Present Psychiatric Illness Patient is a 52-year-old female who presents with chest pain. Patient states that earlier this morning she was having sharp chest pain about 10/10 nothing made it better or worse. Today patient is calm and cooperative during the assessment. She stated that she took Geodon in the past prior to the "passing" of her . She stated seeing a psychiatrist during that time for depression. She stated, "I was never told why I needed to take Geodon." She denies any manic episodes in the past or feeling depressed. She denies SI/HIs and AVH's. She stated that she experience panic attacks. She denies any panic attacks on this admission. She stated having neck/back surgery in the past. Also , she stated having a abscess located in the center of her back that causes her pain. During the assessment she would sit with her neck and back extended. She stated this sitting posture relieves the pain in her back. Patient was seen by surgery on the admission with a outpatient referral. She denies recreational drug use and alcohol consumption (etoh). She stated that she will see her PCP to manage her anxiety (panic attacks). Medications and Allergies Allergies Allergy/AdvReac Type Severity Reaction Status Date / Time isotretinoin [From Accutane] Allergy Anaphylaxis Verified 05/21/17 05:04 morphine Allergy Anaphylaxis Verified 05/21/17 05:03 Home Medications Medication Instructions Recorded Confirmed Last Taken Type Lisinopril/Hydrochlorothiazide 1 tab PO QDAY 07/06/13 05/23/17 1 Day Ago History [Zestoretic 20-12.5 mg] Ziprasidone [Geodon] 0 mg PO BID 07/06/13 05/23/17 1 Day Ago History medroxyPROGESTERone ACETATE 10 mg PO QDAY #12 tablet 07/06/13 05/23/17 1 Day Ago Rx [Provera] Aspirin [Aspirin BABY CHEW TAB] 81 mg PO QDAY #30 tab.chew 05/23/17 Unknown Rx AtorvaSTATin [Lipitor] 40 mg PO QHS #30 tablet 05/23/17 Unknown Rx Benztropine [Cogentin] 1 mg PO BID #60 tablet 05/23/17 Unknown Rx Ferrous Sulfate [Feosol 325 MG tab] 325 mg PO BID #30 tablet 05/23/17 Unknown Rx Indomethacin 50 mg PO Q8H #30 capsule 05/23/17 Unknown Rx Metoprolol Xl [Metoprolol 50 mg PO QDAY #30 tablet 05/23/17 Unknown Rx SUCCINATE ER TAB] Pantoprazole [Protonix TAB] 40 mg PO QDAY #30 tablet 05/23/17 Unknown Rx Warfarin [Coumadin] 10 mg PO DAILY@1700 #30 tablet 05/23/17 Unknown Rx amLODIPine [Norvasc] 5 mg PO DAILY #30 tablet 05/23/17 Unknown Rx oxyCODONE /ACETAMINOPHEN [Percocet 2 tab PO Q6H PRN #12 tablet 05/23/17 Unknown Rx 5/325 mg] Past psychiatric history - Past Medical History Past Medical History: other (Experienced a fall in 2014, abscess on her back) Past Surgical History: Other (Neck and back surgery) - past Psychiatric treatment and history psychiatric treatment history: Seen a psychiatrist in the past for anxiety. Denies a fam psy hx. - Social History Social history: lives with family (HS/College graduate ) Mental Status Exam - Vital signs Last Vital Signs Temp 97.5 F L 05/23/17 05:18 Pulse 64 05/23/17 09:00 Resp 20 05/23/17 05:18 BP 97/61 05/23/17 05:18 Pulse Ox 99 05/23/17 05:18 - Exam Narrative exam: ROS: (-) depression, (-) manic MSE: Appearance: calm, cooperative Behavior: regular eye contact Speech: regular rate and tone Mood: "okay" Affect: congruent to mood Thought Process: linear Thought Content: denies SI/HI's and AVH's Motor Activity: ambulatory Cognition: A/Ox 3 Insight: fair Judgment: fair Results Result Diagrams: 05/23/17 05:37 05/23/17 05:37 Abnormal lab results 05/23/17 Range/Units 05:37 WBC 3.6 L (4.5-11.0) K/mm3 Lymph % (Auto) 41.4 H (13.4-35.0) % [place] % (Auto) 9.3 H (0.0-7.3) % Seg Neutrophils # 1.6 L (1.8-7.7) K/mm3 All other labs normal. Assessment and Plan Assessment and plan: Impression: Historical Dx: Anxiety DO (Panic Attacks). Today patient is calm and cooperative during the assessment. Patient is not manic or psychotic. She denies depression. Recommendation/Plan: Patient will follow-up with her PCP to manage her anxiety ( panic attacks)
== END 2017-05-23 11:45 | disposition home or self-care (01) | DRG 392 ==
LOC: ED 18:36 → 4A 19:00
PROVIDERS: ADMIT Internal Medicine; ATTEND Internal Medicine
PROC: 3E0234Z Introduction of Serum, Toxoid and Vaccine into Muscle, Percutaneous Approach (ICD-10-PCS; principal; 2017-05-21)
DX: R10.9 Unspecified abdominal pain (principal); I48.92 Unspecified atrial flutter; N80.9 Endometriosis, unspecified; R07.9 Chest pain, unspecified; F29 Unspecified psychosis not due to a substance or known physiological condition; I11.0 Hypertensive heart disease with heart failure; I50.9 Heart failure, unspecified; F41.9 Anxiety disorder, unspecified; D64.9 Anemia, unspecified; N92.0 Excessive and frequent menstruation with regular cycle; Z79.899 Other long term (current) drug therapy; Z88.6 Allergy status to analgesic agent; Z88.8 Allergy status to other drugs, medicaments and biological substances; Z23 Encounter for immunization; Z98.51 Tubal ligation status; Z82.49 Family history of ischemic heart disease and other diseases of the circulatory system
CPT/HCPCS: 36415; 71020; 71275; 74177; 78452; 80048; 80061; 81001; 82553; 83735; 84100; 84439; 84443; 84484; 85025; 85610; 90686; 93005; 93010; 93017; 96374; 99285; A9270-GY; A9502; J0360; J1170; J1644; J2270; J2785; J3010; Q9967

== ENCOUNTER 2017-06-10 19:01 | Emergency (ER) | payer OTHER ==
--- NOTE | 2017-06-10 20:21 | Emergency Department Report ---
ED Fall HPI - General Stated Complaint: NECK/RIGHT SIDE PAIN Time Seen by Provider: 06/10/17 19:52 Source: patient - History of Present Illness Initial Comments: Patient is 52 years old female brought in by EMS after a fall in the [employer] station, patient stated that she tripped and fell hit her head and neck she is complaining of headache and neck pain. MD Complaint: fall Fall From: standing Fall Witnessed: yes, by bystander Place Fall Occurred: street Loss of Consciousness: none Prolonged Down Time?: no Symptoms Prior to Fall: none Location: head, neck, back Severity scale (0 -10): 4 Associated Symptoms: headache, neck pain - Related Data Home Medications Medication Instructions Recorded Confirmed Last Taken Lisinopril/Hydrochlorothiazide 1 tab PO QDAY 07/06/13 05/23/17 1 Day Ago [Zestoretic 20-12.5 mg] Ziprasidone [Geodon] 0 mg PO BID 07/06/13 05/23/17 1 Day Ago Previous Rx's Medication Instructions Recorded Last Taken Type medroxyPROGESTERone ACETATE 10 mg PO QDAY #12 tablet 07/06/13 1 Day Ago Rx [Provera] Aspirin [Aspirin BABY CHEW TAB] 81 mg PO QDAY #30 tab.chew 05/23/17 Unknown Rx AtorvaSTATin [Lipitor] 40 mg PO QHS #30 tablet 05/23/17 Unknown Rx Benztropine [Cogentin] 1 mg PO BID #60 tablet 05/23/17 Unknown Rx Ferrous Sulfate [Feosol 325 MG tab] 325 mg PO BID #30 tablet 05/23/17 Unknown Rx Indomethacin 50 mg PO Q8H #30 capsule 05/23/17 Unknown Rx Metoprolol Xl [Metoprolol 50 mg PO QDAY #30 tablet 05/23/17 Unknown Rx SUCCINATE ER TAB] Pantoprazole [Protonix TAB] 40 mg PO QDAY #30 tablet 05/23/17 Unknown Rx Warfarin [Coumadin] 10 mg PO DAILY@1700 #30 tablet 05/23/17 Unknown Rx amLODIPine [Norvasc] 5 mg PO DAILY #30 tablet 05/23/17 Unknown Rx oxyCODONE /ACETAMINOPHEN [Percocet 2 tab PO Q6H PRN #12 tablet 05/23/17 Unknown Rx 5/325 mg] Ketorolac [Toradol] 10 mg PO Q6H PRN #20 tablet 06/10/17 Unknown Rx Metaxalone [Skelaxin] 800 mg PO TID #30 tablet 06/10/17 Unknown Rx Allergies Allergy/AdvReac Type Severity Reaction Status Date / Time isotretinoin [From Accutane] Allergy Anaphylaxis Verified 05/21/17 05:04 morphine Allergy Anaphylaxis Verified 05/21/17 05:03 ED Review of Systems ROS: Stated complaint: NECK/RIGHT SIDE PAIN Other details as noted in HPI Comment: All other systems reviewed and negative Constitutional: denies: chills, diaphoresis Eyes: denies: eye pain, vision change ENT: denies: ear pain, throat pain, hearing loss, epistaxis Respiratory: denies: cough, orthopnea, shortness of breath Cardiovascular: denies: chest pain, palpitations, orthopnea, syncope Gastrointestinal: denies: abdominal pain, nausea, vomiting, diarrhea, constipation, hematemesis, melena, hematochezia Genitourinary: denies: urgency, dysuria, frequency, hematuria Musculoskeletal: back pain (thoracic spine) Neurological: headache. denies: weakness, numbness, paresthesias, confusion ED Past Medical Hx - Past Medical History Hx Hypertension: Yes Hx Heart Attack/AMI: No Hx Congestive Heart Failure: Yes Hx Diabetes: No Hx Kidney Stones: Yes Hx Psychiatric Treatment: Yes (psychosis) Hx COPD: No - Social History Smoking Status: Never Smoker - Medications Home Medications: Home Medications Medication Instructions Recorded Confirmed Last Taken Type Lisinopril/Hydrochlorothiazide 1 tab PO QDAY 07/06/13 05/23/17 1 Day Ago History [Zestoretic 20-12.5 mg] Ziprasidone [Geodon] 0 mg PO BID 07/06/13 05/23/17 1 Day Ago History medroxyPROGESTERone ACETATE 10 mg PO QDAY #12 tablet 07/06/13 05/23/17 1 Day Ago Rx [Provera] Aspirin [Aspirin BABY CHEW TAB] 81 mg PO QDAY #30 tab.chew 05/23/17 Unknown Rx AtorvaSTATin [Lipitor] 40 mg PO QHS #30 tablet 05/23/17 Unknown Rx Benztropine [Cogentin] 1 mg PO BID #60 tablet 05/23/17 Unknown Rx Ferrous Sulfate [Feosol 325 MG tab] 325 mg PO BID #30 tablet 05/23/17 Unknown Rx Indomethacin 50 mg PO Q8H #30 capsule 05/23/17 Unknown Rx Metoprolol Xl [Metoprolol 50 mg PO QDAY #30 tablet 05/23/17 Unknown Rx SUCCINATE ER TAB] Pantoprazole [Protonix TAB] 40 mg PO QDAY #30 tablet 05/23/17 Unknown Rx Warfarin [Coumadin] 10 mg PO DAILY@1700 #30 tablet 05/23/17 Unknown Rx amLODIPine [Norvasc] 5 mg PO DAILY #30 tablet 05/23/17 Unknown Rx oxyCODONE /ACETAMINOPHEN [Percocet 2 tab PO Q6H PRN #12 tablet 05/23/17 Unknown Rx 5/325 mg] Ketorolac [Toradol] 10 mg PO Q6H PRN #20 tablet 06/10/17 Unknown Rx Metaxalone [Skelaxin] 800 mg PO TID #30 tablet 06/10/17 Unknown Rx ED Physical Exam - General General appearance: alert, in no apparent distress, other (patient immobilized with a c-collar and backboard) - Head Head exam: Present: normocephalic, normal inspection - Eye Eye exam: Present: normal appearance Pupils: Present: normal accommodation - ENT ENT exam: Present: normal exam, normal orophraynx, mucous membranes moist - Respiratory Respiratory exam: Present: normal lung sounds bilaterally. Absent: respiratory distress, wheezes, rales, rhonchi, stridor, chest wall tenderness - Cardiovascular Cardiovascular Exam: Present: regular rate, normal rhythm, normal heart sounds - GI/Abdominal GI/Abdominal exam: Present: soft, normal bowel sounds. Absent: distended, tenderness, guarding, rebound, rigid - Extremities Exam Extremities exam: Present: normal inspection, full ROM, normal capillary refill. Absent: tenderness, joint swelling - Back Exam Back exam: Present: normal inspection, tenderness (upper back). Absent: CVA tenderness (R), CVA tenderness (L), muscle spasm, paraspinal tenderness, vertebral tenderness - Neurological Exam Neurological exam: Present: alert, oriented X3, CN II-XII intact. Absent: motor sensory deficit - Skin Skin exam: Present: warm, intact, normal color ED Course Vital Signs 06/10/17 06/11/17 06/11/17 22:27 03:10 03:18 Temperature 98.1 F 97.4 F L 97.4 F L Pulse Rate 82 77 77 Respiratory 16 16 16 Rate Blood Pressure 119/54 Blood Pressure 152/88 152/88 [Left] O2 Sat by Pulse 100 99 99 Oximetry 06/11/17 04:56 Temperature 97.4 F L Pulse Rate 72 Respiratory 16 Rate Blood Pressure Blood Pressure 134/70 [Left] O2 Sat by Pulse Oximetry - Reevaluation(s) Reevaluation #1: 06/11/17 01:21 After patient was discharged from the ER she started wandering around in the ER waiting area saying that she is being diagnosed with an Escherichia coli and need to be reported to [facility] so a nurse brought the patient back for reevaluation. When I talked and she told me that she feeling that there is a bug following since 2013. He didn't get to her Gar[place] until 2016 and she's been following with Dr. Juarez since then for that. She told me that she was diagnosed with schizophrenia and bipolar but she thinks the diagnosis was misleading because either one had to be successful. Patient currently denied any visual hallucination or auditory examination denied any suicidal or homicidal ideation. Patient is alert and oriented 3. I requested mental health evaluation before discharge. ED Medical Decision Making - Lab Data Result diagrams: 06/11/17 01:41 06/11/17 01:41 - Radiology Data Radiology results: report reviewed CT brain, CT C-spine, CT thoracic spine is negative for acute fracture or dislocation. Critical care attestation.: If time is entered above; I have spent that time in minutes in the direct care of this critically ill patient, excluding procedure time. ED Disposition Clinical Impression: Fall, Head injury, Sprain of cervical neck, Mid-back pain, acute, Acute psychosis Disposition: [id number] PSY HOSP/PSY UNIT Is pt being admited?: No Condition: Stable Instructions: Minor Head Injury (ED), Fall Prevention (ED) Prescriptions: Ketorolac [Toradol] 10 mg PO Q6H PRN #20 tablet PRN Reason: Pain Metaxalone [Skelaxin] 800 mg PO TID #30 tablet Referrals: PRIMARY CARE, [Primary Care Provider] - 3-5 Days
--- NOTE | 2017-06-10 21:23 | Cat Scan Report ---
FINAL REPORT EXAM: CT HEAD/BRAIN WO CON HISTORY: fall TECHNIQUE: Noncontrast serial axial images from skull base to vertex PRIORS: None. FINDINGS: There is no mass effect or midline shift. There are no abnormal intra or extra-axial fluid collections. Cortical sulci and lateral ventricles are within normal limits for size and configuration. Basilar cisterns are patent. No acute intracranial hemorrhage is identified. Visualized paranasal sinuses and mastoid air cells are well aerated. No acute osseous abnormality is identified. IMPRESSION: 1. No acute intracranial hemorrhage is identified.
--- NOTE | 2017-06-10 21:48 | Cat Scan Report ---
FINAL REPORT EXAM: CT CERVICAL SPINE WO CON HISTORY: fall TECHNIQUE: CT cervical spine without contrast Multiplanar reconstructions obtained. PRIORS: None. FINDINGS: There is posterior fusion hardware from C3 through C7. Prominent anterior vertebral osteophytes are present C3-C7. There is posterior laminectomy Vertebral bodies are normal in height and alignment. C1 and C2 appear within normal limits. No acute fractures or malalignment identified. IMPRESSION: Spondylosis with posterior fusion and laminectomy C3 through C7 No acute traumatic abnormality is identified.
--- NOTE | 2017-06-10 21:54 | Cat Scan Report ---
FINAL REPORT EXAM: CT THORACIC SPINE WO CON HISTORY: fall TECHNIQUE: Noncontrast serial axial images through the thoracic spine with coronal and sagittal reconstruction PRIORS: None. FINDINGS: There is mild atelectasis in the right lung base. No pleural effusion is seen. No gross abnormality is seen in the visualized paraspinal soft tissues. Sequelae from posterior fusion are seen in the cervical spine. This is incompletely evaluated this study. Osteophytes are seen at each level of the thoracic spine. Vertebral body height is preserved. No acute fracture or anterolisthesis is identified. IMPRESSION: 1. Multilevel degenerative change is noted. 2. No acute fracture or anterolisthesis is identified.
[2017-06-11 02:03] LABS: Eosinophils % (Auto) 2.5 % (0.0-4.3); Hematocrit 36.2 % (30.3-42.9); Hemoglobin 12.2 gm/dl (10.1-14.3); Mean Corpuscular HGB Conc 34 % (30-34); Mean Corpuscular Hemoglobin 29 pg (28-32); Mean Corpuscular Volume 87 fl (79-97); Platelet Count 310 K/mm3 (140-440); Red Blood Count 4.16 M/mm3 (3.65-5.03); Red Cell Distribution Width 14.4 % (13.2-15.2); White Blood Count 4.6 K/mm3 (4.5-11.0)
[2017-06-11 02:23] LABS: Alanine Aminotransferase 46 units/L (7-56); Albumin 4.4 g/dL (3.9-5); Albumin/Globulin Ratio 1.3 %; Alkaline Phosphatase 93 units/L (35-129); Anion Gap 20 mmol/L; BUN/Creatinine Ratio 27; Blood Urea Nitrogen 24 mg/dL (7-17); Calcium 9.3 mg/dL (8.4-10.2); Carbon Dioxide 26 mmol/L (22-30); Chloride 100.8 mmol/L (98-107); Glucose 116 mg/dL (65-100); Potassium 3.8 mmol/L (3.6-5.0); Sodium 143 mmol/L (137-145); Total Protein 7.9 g/dL (6.3-8.2)
[2017-06-11 04:17] LABS: Urine Drugs of Abuse Note Disclamer
[2017-06-11 04:32] LABS: Bacteria,Urine 2+ /HPF (Negative); Bilirubin,Urine NEG (Negative); Blood,Urine SM (Negative); Ketones,Urine NEG (Negative); Leukocyte Esterase,Urine TR (Negative); Mucus,Urine 3+ /HPF; Nitrite,Urine NEG (Negative); Urobilinogen,Urine < 2.0 mg/dL (<2.0)
--- NOTE | 2017-06-11 18:54 | Consultation ---
History of Present Illness - Reason for Consult Consult date: 06/11/17 Reason for consult: Mental Health Evaluation Requesting physician: DMITRIY SCHERER - Chief Complaint Chief complaint: "This bug have been a problem" - History of Present Psychiatric Illness Patient is 52 years old female brought in by EMS after a fall in the [employer] station. This patient is known to me. Today patient is cooperative, but anxious with a tangential thought process. I asked patient about her bizarre behavior after being discharged prior to being placed on a 1013. She stated that she was bitten by a bug that have been following her since 2013 or 2015. I asked patient to describe this bug, she stated that she live in a hotel and possibly a detention. She had to be redirected several times to keep her focus on the questions asked of her. Per the ER note, the patient reported a dx of schizophrenia and or bipolar. She stated that she have anxiety and denies having bipolar and schizophrenia. When asked about her current residence, patient could not logically answer the question. She denies SI/HI's and AVH's. She denies sleep disturbance and a poor appetite. She denies recreational drug use and excessive alcohol consumption (etoh). Medications and Allergies Allergies Allergy/AdvReac Type Severity Reaction Status Date / Time isotretinoin [From Accutane] Allergy Anaphylaxis Verified 05/21/17 05:04 morphine Allergy Anaphylaxis Verified 05/21/17 05:03 Home Medications Medication Instructions Recorded Confirmed Last Taken Type Lisinopril/Hydrochlorothiazide 1 tab PO QDAY 07/06/13 05/23/17 1 Day Ago History [Zestoretic 20-12.5 mg] Ziprasidone [Geodon] 0 mg PO BID 07/06/13 05/23/17 1 Day Ago History medroxyPROGESTERone ACETATE 10 mg PO QDAY #12 tablet 07/06/13 05/23/17 1 Day Ago Rx [Provera] Aspirin [Aspirin BABY CHEW TAB] 81 mg PO QDAY #30 tab.chew 05/23/17 Unknown Rx AtorvaSTATin [Lipitor] 40 mg PO QHS #30 tablet 05/23/17 Unknown Rx Benztropine [Cogentin] 1 mg PO BID #60 tablet 05/23/17 Unknown Rx Ferrous Sulfate [Feosol 325 MG tab] 325 mg PO BID #30 tablet 05/23/17 Unknown Rx Indomethacin 50 mg PO Q8H #30 capsule 05/23/17 Unknown Rx Metoprolol Xl [Metoprolol 50 mg PO QDAY #30 tablet 05/23/17 Unknown Rx SUCCINATE ER TAB] Pantoprazole [Protonix TAB] 40 mg PO QDAY #30 tablet 05/23/17 Unknown Rx Warfarin [Coumadin] 10 mg PO DAILY@1700 #30 tablet 05/23/17 Unknown Rx amLODIPine [Norvasc] 5 mg PO DAILY #30 tablet 05/23/17 Unknown Rx oxyCODONE /ACETAMINOPHEN [Percocet 2 tab PO Q6H PRN #12 tablet 05/23/17 Unknown Rx 5/325 mg] Ketorolac [Toradol] 10 mg PO Q6H PRN #20 tablet 06/10/17 Unknown Rx Metaxalone [Skelaxin] 800 mg PO TID #30 tablet 06/10/17 Unknown Rx Past psychiatric history - Past Medical History Past Medical History: hypertension Past Surgical History: Other (Back Surgery) - past Psychiatric treatment and history psychiatric treatment history: Patient stated that she has an Anxiety DO. She denies a fam psy hx. Mental Status Exam - Vital signs Last Vital Signs Temp 97.4 F L 06/11/17 04:56 Pulse 72 06/11/17 04:56 Resp 16 06/11/17 04:56 BP 134/70 06/11/17 04:56 Pulse Ox 99 06/11/17 03:18 - Exam Narrative exam: MSE: Appearance: cooperative Behavior: regular eye contact Speech: regular rate and tone Mood: anxious Affect: congruent to mood Thought Process: tangential Thought Content: denies SI/HI's and AVH's, disorganized, delusional Motor Activity: lying in bed Cognition: A/O x 3 Insight: variable Judgment: variable Results Result Diagrams: 06/11/17 01:41 06/11/17 01:41 Abnormal lab results 06/11/17 06/11/17 06/11/17 Range/Units 01:41 01:41 03:25 Lymph % (Auto) 37.3 H (13.4-35.0) % Millard % (Auto) 9.5 H (0.0-7.3) % BUN 24 H (7-17) mg/dL Glucose 116 H (65-100) mg/dL AST 51 H (5-40) units/L Urine WBC (Auto) 12.0 H (0.0-6.0) /HPF All other labs normal. Assessment and Plan Assessment and plan: Impression: Historical Dx: Anxiety DO. Unspecified Psychosis. Today patient is cooperative, but anxious with a tangential thought process. Patient is delusional and disorganized. DDx: Bipolar DO, Schizophrenia Recommendation/Plan: Continue 1013 with placement to inpatient psy services. Start Geodon 20 mg PO BID for psychosis and Buspar 5 mg PO BID for anxiety.
[2017-06-11] MEDS: BUSPAR PO SCH (22:13)
[2017-06-11] MEDS: GEODON PO SCH (22:13)
[2017-06-12] MEDS: BUSPAR PO SCH ×2 (10:30→21:54)
[2017-06-12] MEDS: GEODON PO SCH ×2 (10:30→21:54)
[2017-06-13] MEDS: GEODON PO SCH ×2 (10:01→22:17)
[2017-06-13] MEDS: BUSPAR PO SCH ×2 (10:01→22:17)
--- NOTE | 2017-06-13 12:18 | Progress Note ---
Subjective - Reason for Consult Consult date: 06/13/17 Reason for consult: Psychiatry Follow-up - Chief Complaint Chief complaint: "Will I be able to leave" Patient is 52 years old female brought in by EMS after a fall in the [employer] station. This patient is known to me. Today patient is calm and cooperative but delusional during the assessment. She still feels that bugs are following her, but cannot explain why. She was not logical with many of her answers when questioned. She stated that she is homeless and would like to go to a snf when discharged. She denies SI/HI's and AVH's. Mental Status Exam - Vital signs Last Vital Signs Temp 99.3 F 06/13/17 10:01 Pulse 82 06/13/17 10:01 Resp 18 06/13/17 10:02 BP 117/82 06/13/17 10:01 Pulse Ox 98 06/13/17 10:02 - Exam Narrative exam: MSE: Appearance: calm, cooperative Behavior: regular eye contact Speech: regular rate and tone Mood: "okay" Affect: congruent to mood Thought Process: linear Thought Content: denies SI/HI's and AVH's, delusional Motor Activity: ambulatory Cognition: A/O x 3 Insight: variable Judgment: variable Assessment and Plan Impression: Historical Dx: Anxiety DO. Unspecified Psychosis. Today patient is calm and cooperative but delusional during the assessment. Patient is homeless. DDx: Bipolar DO, Schizophrenia Recommendation/Plan: Continue 1013. Modify Geodon to 40 20 mg PO BID for psychosis and Buspar 5 mg PO BID for anxiety. Discussed possible metabolic side effects of Geodon with patient. Ripsaw Operator involvement, patient will need placement.
[2017-06-13 19:19] LABS: INR 1.02 (0.87-1.13); Partial Thromboplastin Time 28.1 Sec. (24.2-36.6)
[2017-06-13] MEDS ORDERED: TYLENOL PO ONE (22:30)
[2017-06-14] MEDS: GEODON PO SCH ×2 (10:44→22:06)
[2017-06-14] MEDS: BUSPAR PO SCH ×2 (10:44→22:07)
--- NOTE | 2017-06-14 13:36 | Progress Note ---
Subjective - Reason for Consult Consult date: 06/14/17 Reason for consult: Psychiatry Follow-up - Chief Complaint Chief complaint: "I want to be discharged" Patient is 52 years old female brought in by EMS after a fall in the [email or web address] station. This patient is known to me. Today patient is calm and cooperative during the assessment. She stated that the "bugs" are not following her anymore. She stated that she have two checks from a former employer that need to be cashed. She stated that she will go to [facility] to get her medications. She denies SI/HI's AVH's. She denies any side effects of her medications. Mental Status Exam - Vital signs Last Vital Signs Temp 98.8 F 06/14/17 10:44 Pulse 88 06/14/17 10:44 Resp 18 06/14/17 10:44 BP 151/98 06/14/17 10:44 Pulse Ox 100 06/14/17 10:44 - Exam Narrative exam: MSE: Appearance: calm, cooperative Behavior: regular eye contact Speech: regular rate and tone Mood: "well" Affect: congruent to mood Thought Process: linear Thought Content: denies SI/HI's and AVH's Motor Activity: ambulatory Cognition: A/O x 3 Insight: fair Judgment: fair Assessment and Plan Impression: Historical Dx: Anxiety DO. Unspecified Psychosis. Today patient is calm and cooperative during the assessment. Patient is homeless. DDx: Bipolar DO, Schizophrenia Recommendation/Plan: Rescind 1013. Continue Geodon 40 mg PO BID for psychosis and Buspar 5 mg PO BID for anxiety. Discussed possible metabolic side effects of Geodon with patient. Radio Division Officer involvement, patient will need placement.
[2017-06-15] MEDS: GEODON PO SCH (11:03)
[2017-06-15] MEDS: BUSPAR PO SCH (11:03)
[2017-06-15 14:06] VITALS: BP 140/94
== END 2017-06-15 14:12 ==
LOC: ED 19:01 → EEVIPCON 19:01 → ED 22:44
DX: S13.4XXA Sprain of ligaments of cervical spine, initial encounter (principal); S09.90XA Unspecified injury of head, initial encounter; M54.9 Dorsalgia, unspecified; F23 Brief psychotic disorder; I10 Essential (primary) hypertension; I50.9 Heart failure, unspecified; Z79.82 Long term (current) use of aspirin; Z88.8 Allergy status to other drugs, medicaments and biological substances; W19.XXXA Unspecified fall, initial encounter; Y93.9 Activity, unspecified; Y99.9 Unspecified external cause status; Y92.89 Other specified places as the place of occurrence of the external cause
CPT/HCPCS: 36415; 70450; 72125; 72128; 80053; 80307; 81001; 85025; 85610; 85730; 99285; G0480; 80320

== ENCOUNTER 2019-10-23 10:34 | Emergency (ER) | payer OTHER ==
--- NOTE | 2019-10-23 13:11 | XRay Report ---
LUMBAR SPINE, AP AND LATERAL VIEWS 10/23/2019 INDICATION / CLINICAL INFORMATION: fall back pain. COMPARISON: None available. FINDINGS: Degenerative disc disease is identified at L3-L4 and L4-L5. Bony alignment is well maintained. No fractures are identified. Signer Name: Joaquin Gallagher MD Signed: 10/23/2019 1:07 PM Workstation Name: [id number]
--- NOTE | 2019-10-23 13:16 | XRay Report ---
THORACIC SPINE 4 IMAGES INDICATION: fall back pain. COMPARISON: No relevant prior imaging study available. FINDINGS: No acute fracture or subluxation is seen in the thoracic spine. There is diffuse thoracic spondylosis . IMPRESSION: 1. No acute findings. Signer Name: Shade Hernandez MD Signed: 10/23/2019 1:12 PM Workstation Name: [id number]
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
[2019-10-23 15:20] VITALS: BP 123/81
== END 2019-10-23 15:21 | disposition home or self-care (01) ==
LOC: ED 10:34
DX: M54.5 Low back pain (principal); I11.0 Hypertensive heart disease with heart failure; I50.9 Heart failure, unspecified; W18.30XA Fall on same level, unspecified, initial encounter; Y93.89 Activity, other specified; Y92.89 Other specified places as the place of occurrence of the external cause; Y99.8 Other external cause status
CPT/HCPCS: 72072; 72100; 99283

== ENCOUNTER 2020-02-05 21:59 | Emergency (ER) | payer SELFPAY ==
--- NOTE | 2020-02-05 23:55 | Emergency Department Report ---
ED Abdominal Pain HPI - General Chief Complaint: Abdominal Pain Stated Complaint: ABDOMINAL PAIN PUI?: No Time Seen by Provider: 02/05/20 23:39 Source: patient, EMS Mode of arrival: Ambulatory Limitations: No Limitations - History of Present Illness Initial Comments: Mrs. Morales is a 54-year-old female with history of atrial flutter, endometriosis, anxiety disorder, anemia, hypertension who presents with lower abdominal pain which began this morning. Pain is dull. Moderately severe. Persistent. Pain does not change with movement. Patient arrived via EMS. MD Complaint: abdominal pain -: Gradual Location: LLQ, RLQ Radiation: none Severity: moderate Severity scale (0 -10): 8 Quality: dull Consistency: constant Improves With: nothing Worsens With: nothing Associated Symptoms: denies other symptoms - Related Data Home Medications Medication Instructions Recorded Confirmed Last Taken Lisinopril/Hydrochlorothiazide 1 tab PO QDAY 07/06/13 06/12/17 1 Day Ago [Zestoretic 20-12.5 mg] ~05/22/17 Ziprasidone [Geodon] 0 mg PO BID 07/06/13 06/12/17 1 Day Ago ~05/22/17 Previous Rx's Medication Instructions Recorded Last Taken Type medroxyPROGESTERone ACETATE 10 mg PO QDAY #12 tablet 07/06/13 1 Day Ago Rx [Provera] ~05/22/17 Aspirin [Aspirin BABY CHEW TAB] 81 mg PO QDAY #30 tab.chew 05/23/17 Unknown Rx AtorvaSTATin [Lipitor] 40 mg PO QHS #30 tablet 05/23/17 Unknown Rx Benztropine [Cogentin] 1 mg PO BID #60 tablet 05/23/17 Unknown Rx Ferrous Sulfate [Feosol 325 MG tab] 325 mg PO BID #30 tablet 05/23/17 Unknown Rx Indomethacin 50 mg PO Q8H #30 capsule 05/23/17 Unknown Rx Metoprolol Xl [Metoprolol 50 mg PO QDAY #30 tablet 05/23/17 Unknown Rx SUCCINATE ER TAB] Pantoprazole [Protonix TAB] 40 mg PO QDAY #30 tablet 05/23/17 Unknown Rx amLODIPine 5 mg PO DAILY #30 tablet 05/23/17 Unknown Rx oxyCODONE /ACETAMINOPHEN [Percocet 2 tab PO Q6H PRN #12 tablet 05/23/17 Unknown Rx 5/325 mg] Nitrofurantoin Monohyd/M-Cryst 100 mg PO BID #10 capsule 06/14/17 Unknown Rx [Macrobid 100 mg Capsule] Ziprasidone [Geodon] 40 mg PO BID #60 capsule 06/14/17 Unknown Rx busPIRone [Buspar] 5 mg PO BID #60 tab 06/14/17 Unknown Rx Ibuprofen 800 mg PO Q6HR #20 tablet 08/26/18 Unknown Rx Ketorolac [Toradol] 10 mg PO Q6H PRN #10 tablet 10/23/19 Unknown Rx methOCARBAMOL [Robaxin TAB] 500 mg PO Q6H #20 tablet 10/23/19 Unknown Rx HYDROcodone/APAP 5-325 [[place] 1 each PO Q6HR PRN #10 tablet 02/06/20 Unknown Rx 5/325] Promethazine [Phenergan] 25 mg PO Q6HR PRN #10 tab 02/06/20 Unknown Rx Allergies Allergy/AdvReac Type Severity Reaction Status Date / Time isotretinoin [From Accutane] Allergy Anaphylaxis Verified 05/21/17 05:04 morphine Allergy Anaphylaxis Verified 05/21/17 05:03 ED Review of Systems ROS: Stated complaint: ABDOMINAL PAIN Other details as noted in HPI Comment: All other systems reviewed and negative Constitutional: denies: fever, malaise Respiratory: denies: cough Cardiovascular: denies: chest pain Gastrointestinal: abdominal pain ED Past Medical Hx - Past Medical History Previous Medical History?: Yes Hx Hypertension: Yes Hx Heart Attack/AMI: No Hx Congestive Heart Failure: Yes Hx Diabetes: No Hx Kidney Stones: Yes Hx Psychiatric Treatment: Yes (psychosis) Hx COPD: No - Surgical History Past Surgical History?: Yes Additional Surgical History: back injury previously - Social History Smoking Status: Never Smoker Substance Use Type: None - Medications Home Medications: Home Medications Medication Instructions Recorded Confirmed Last Taken Type Lisinopril/Hydrochlorothiazide 1 tab PO QDAY 07/06/13 06/12/17 1 Day Ago History [Zestoretic 20-12.5 mg] ~05/22/17 Ziprasidone [Geodon] 0 mg PO BID 07/06/13 06/12/17 1 Day Ago History ~05/22/17 medroxyPROGESTERone ACETATE 10 mg PO QDAY #12 tablet 07/06/13 06/12/17 1 Day Ago Rx [Provera] ~05/22/17 Aspirin [Aspirin BABY CHEW TAB] 81 mg PO QDAY #30 tab.chew 05/23/17 06/12/17 Unknown Rx AtorvaSTATin [Lipitor] 40 mg PO QHS #30 tablet 05/23/17 06/12/17 Unknown Rx Benztropine [Cogentin] 1 mg PO BID #60 tablet 05/23/17 06/12/17 Unknown Rx Ferrous Sulfate [Feosol 325 MG tab] 325 mg PO BID #30 tablet 05/23/17 06/12/17 Unknown Rx Indomethacin 50 mg PO Q8H #30 capsule 05/23/17 06/12/17 Unknown Rx Metoprolol Xl [Metoprolol 50 mg PO QDAY #30 tablet 05/23/17 06/12/17 Unknown Rx SUCCINATE ER TAB] Pantoprazole [Protonix TAB] 40 mg PO QDAY #30 tablet 05/23/17 06/12/17 Unknown Rx amLODIPine 5 mg PO DAILY #30 tablet 05/23/17 06/12/17 Unknown Rx oxyCODONE /ACETAMINOPHEN [Percocet 2 tab PO Q6H PRN #12 tablet 05/23/17 06/12/17 Unknown Rx 5/325 mg] Nitrofurantoin Monohyd/M-Cryst 100 mg PO BID #10 capsule 06/14/17 Unknown Rx [Macrobid 100 mg Capsule] Ziprasidone [Geodon] 40 mg PO BID #60 capsule 06/14/17 Unknown Rx busPIRone [Buspar] 5 mg PO BID #60 tab 06/14/17 Unknown Rx Ibuprofen 800 mg PO Q6HR #20 tablet 08/26/18 Unknown Rx Ketorolac [Toradol] 10 mg PO Q6H PRN #10 tablet 10/23/19 Unknown Rx methOCARBAMOL [Robaxin TAB] 500 mg PO Q6H #20 tablet 10/23/19 Unknown Rx HYDROcodone/APAP 5-325 [[place] 1 each PO Q6HR PRN #10 tablet 02/06/20 Unknown Rx 5/325] Promethazine [Phenergan] 25 mg PO Q6HR PRN #10 tab 02/06/20 Unknown Rx ED Physical Exam - General Limitations: No Limitations General appearance: alert, in no apparent distress - Head Head exam: Present: atraumatic, normocephalic - Eye Eye exam: Present: normal appearance - ENT ENT exam: Present: mucous membranes moist - Neck Neck exam: Present: normal inspection, full ROM - Respiratory Respiratory exam: Present: normal lung sounds bilaterally. Absent: respiratory distress, wheezes, rales, rhonchi - Cardiovascular Cardiovascular Exam: Present: regular rate, normal rhythm, normal heart sounds. Absent: systolic murmur, diastolic murmur, rubs, gallop - GI/Abdominal GI/Abdominal exam: Present: soft, normal bowel sounds. Absent: distended, tenderness, guarding, rebound - Extremities Exam Extremities exam: Present: normal inspection - Neurological Exam Neurological exam: Present: alert, oriented X3 - Psychiatric Psychiatric exam: Present: normal affect, normal mood - Skin Skin exam: Present: warm, dry, intact, normal color. Absent: rash ED Course Vital Signs 02/05/20 02/06/20 22:35 00:28 Temperature 98.8 F Pulse Rate 120 H 100 H Respiratory 20 18 Rate Blood Pressure 146/97 Blood Pressure 147/96 [Right] O2 Sat by Pulse 96 96 Oximetry ED Medical Decision Making - Lab Data Result diagrams: 02/05/20 23:12 02/05/20 23:12 - Radiology Data Radiology results: report reviewed CT abdomen pelvis: nonobstructive right-sided nephrolithiasis, small 2 mm calculus within the urinary bladder consistent with recently passed urinary calculus - Medical Decision Making Clinical impression renal colic. Prescribed [place] and promethazine. Refer to urologist and outpatient primary care physician. Critical care attestation.: If time is entered above; I have spent that time in minutes in the direct care of this critically ill patient, excluding procedure time. ED Disposition Clinical Impression: Renal colic, Kidney stone Disposition: DC-01 TO HOME OR SELFCARE Is pt being admited?: No Does the pt Need Aspirin: No Condition: Stable Instructions: Kidney Stones (ED) Prescriptions: HYDROcodone/APAP 5-325 [[place] 5/325] 1 each PO Q6HR PRN #10 tablet PRN Reason: Pain Promethazine [Phenergan] 25 mg PO Q6HR PRN #10 tab PRN Reason: Nausea Referrals: BART PALMA MD [Staff Physician] - as needed SANDEEP RODRIGES MD [Staff Physician] - 3-5 Days
[2020-02-05] MEDS ORDERED: ONDANSETRON 4 MG/2 ML INJ IV ONE (23:56)
[2020-02-05] MEDS ORDERED: HYDROmorphone 1 MG/1 ML INJ IV ONE (23:56)
[2020-02-06] LABS: Basophils # (Auto) 0.1 K/mm3 (0.0-0.1); Basophils % (Auto) 0.8 % (0.0-1.8); Eosinophils # (Auto) 0.1 K/mm3 (0.0-0.4); Eosinophils % (Auto) 0.8 % (0.0-4.3); Hematocrit 38.8 % (30.3-42.9); Hemoglobin 12.5 gm/dl (10.1-14.3); Lymphocytes # (Auto) 2.7 K/mm3 (1.2-5.4); Lymphocytes % (Auto) 34.6 % (13.4-35.0); Mean Corpuscular HGB Conc 32 % (30-34); Mean Corpuscular Volume 85 fl (79-97); Monocytes # (Auto) 0.6 K/mm3 (0.0-0.8); Monocytes % (Auto) 7.2 % (0.0-7.3); Platelet Count 436 K/mm3 (140-440); Red Blood Count 4.55 M/mm3 (3.65-5.03); Red Cell Distribution Width 14.9 % (13.2-15.2)
[2020-02-06 00:15] LABS: Alanine Aminotransferase 21 units/L (7-56); Albumin 4.5 g/dL (3.9-5); BUN/Creatinine Ratio 23; Blood Urea Nitrogen 23 mg/dL (7-17); Hemolysis Index 3
--- NOTE | 2020-02-06 01:36 | Cat Scan Report ---
CT ABDOMEN AND PELVIS WITH IV CONTRAST INDICATION: MAIN: abdominal pain, 100cc Omni 300. COMPARISON: None available. TECHNIQUE: Axial CT images were obtained through the abdomen and pelvis after 100 mL IV contrast. All CT scans a t this location are performed using CT dose reduction for ALARA by means of automated exposure contro l. FINDINGS -- ABDOMEN: Lung Bases: No acute abnormality. Liver: Normal. Gallbladder: Normal. Bile Ducts: Normal. Pancreas: Normal. Spleen: Normal. Adrenals: Normal. Right Kidney and Proximal Ureter: Nonobstructive right-sided nephrolithiasis. Left Kidney and Proximal Ureter: Normal. Stomach and Bowel: Normal. Lymph Nodes: No significant adenopathy. Aorta: No significant abnormality. IVC: Normal. Additional Findings: None. FINDINGS -- PELVIS: Urinary Bladder and Distal Ureters: Tiny 2 mm stone present within the urinary bladder lumen. Reproductive Organs: No acute abnormality. Appendix: Normal. Bowel: No acute abnormality. Free Fluid: None. Lymph Nodes: No significant adenopathy. Additional Findings: None. Skeletal System: No acute abnormality. IMPRESSION: Nonobstructive right-sided nephrolithiasis. There is a small 2 mm calculus within the urinary bladder lumen consistent with recently passed urinary calculus. Signer Name: Levi Mansfield MD Signed: 02/06/2020 1:32 AM Workstation Name: [id number]
[2020-02-06] MEDS ORDERED: HYDROcodone/ACETAMINOPHEN 5-325 MG TAB PO ONE (01:37)
[2020-02-06] MEDS ORDERED: KETOROLAC 30 MG/1 ML INJ IV ONE (01:44)
[2020-02-06 02:00] VITALS: BP 165/91
== END 2020-02-06 02:06 | disposition home or self-care (01) ==
LOC: ED 21:59
DX: N23 Unspecified renal colic (principal); N20.0 Calculus of kidney; D64.9 Anemia, unspecified; F41.9 Anxiety disorder, unspecified; I48.92 Unspecified atrial flutter; I11.0 Hypertensive heart disease with heart failure; I50.9 Heart failure, unspecified; Z79.899 Other long term (current) drug therapy; Z88.6 Allergy status to analgesic agent; Z88.8 Allergy status to other drugs, medicaments and biological substances; Z98.890 Other specified postprocedural states
CPT/HCPCS: 36415; 74177; 80053; 85025; 96374; 96375; 99284; J1170; J1885; J2405; Q9967